=== PATIENT | female | born 1965 | race Two or more races ===

== ENCOUNTER 2020-04-17 13:50 | Outpatient (REF) | payer OTHER, SELFPAY | END 2020-04-17 13:51 | disposition home or self-care (01) | LOC: HO.LAB 13:50 | PROVIDERS: PCP Registered Nurse; Visit Provider Internal Medicine | DX: Z20.828 Contact with and (suspected) exposure to other viral communicable diseases (principal) | CPT/HCPCS: C9803; U0003 ==

== ENCOUNTER 2020-05-23 14:22 | Outpatient (REF) | payer OTHER, SELFPAY ==
--- NOTE | 2020-05-23 14:30 | XR_ITS ---
EXAMINATION: XR BILATERAL WRISTS CLINICAL INFORMATION: Pain COMPARISON: None TECHNIQUE: PA, oblique, lateral and scaphoid views of each wrist FINDINGS: No acute fracture or dislocation. There are degenerative changes of the bilateral first CMC joints characterized by marginal osteophytosis, subchondral sclerosis and joint space narrowing, worse on the right where there is associated heterotopic ossification along the radial aspect of the trapezium. Radiocarpal joints are preserved. Scapholunate intervals within normal limits. No erosive changes. Soft tissues unremarkable. XR/XR wrist LT min 3V IMPRESSION: No acute fracture or dislocation. 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 No evidence of inflammatory arthropathy.
--- NOTE | 2020-05-23 14:30 | XR_ITS ---
EXAMINATION: XR BILATERAL WRISTS CLINICAL INFORMATION: Pain COMPARISON: None TECHNIQUE: PA, oblique, lateral and scaphoid views of each wrist FINDINGS: No acute fracture or dislocation. There are degenerative changes of the bilateral first CMC joints characterized by marginal osteophytosis, subchondral sclerosis and joint space narrowing, worse on the right where there is associated heterotopic ossification along the radial aspect of the trapezium. Radiocarpal joints are preserved. Scapholunate intervals within normal limits. No erosive changes. Soft tissues unremarkable. XR/XR wrist RT min 3V IMPRESSION: No acute fracture or dislocation. 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 No evidence of inflammatory arthropathy.
== END 2020-05-23 14:23 | disposition home or self-care (01) ==
LOC: HO.XRAY 14:22
PROVIDERS: PCP Registered Nurse; Visit Provider Registered Nurse
DX: M25.531 Pain in right wrist (principal); M25.532 Pain in left wrist
CPT/HCPCS: 73110

== ENCOUNTER → 2020-07-12 09:33 | Outpatient (BNVA) | payer OTHER, SELFPAY | PROVIDERS: Visit Provider Orthopaedic Surgery | DX: M65.4 Radial styloid tenosynovitis [de Quervain] (principal) | CPT/HCPCS: 20600; 99202; J1100 ==

== ENCOUNTER 2020-08-13 14:35 | Outpatient (REF) | payer OTHER, SELFPAY | END 2020-08-13 14:36 | disposition home or self-care (01) | LOC: HO.HOSX 14:35 | PROVIDERS: Visit Provider Orthopaedic Surgery | DX: M65.4 Radial styloid tenosynovitis [de Quervain] (principal); M25.531 Pain in right wrist | CPT/HCPCS: 99212 ==

== ENCOUNTER 2021-04-26 10:42 | Outpatient (REF) | payer OTHER, SELFPAY ==
[2021-04-26 11:22] LABS: COVID-19 Test Negative (Negative)
== END 2021-04-26 10:43 | disposition home or self-care (01) ==
LOC: HO.LAB 10:42
PROVIDERS: Visit Provider Internal Medicine
DX: Z20.822 Contact with and (suspected) exposure to COVID-19 (principal)
CPT/HCPCS: 36415; 87635; C9803

== ENCOUNTER 2022-01-31 10:38 | Outpatient (REF) | payer OTHER, SELFPAY ==
--- NOTE | ~2022-01-31 | US_ITS ---
EXAMINATION: US VENOUS ULTRASOUND WITH DOPPLER LOWER EXTREMITY, RIGHT CLINICAL INFORMATION: Right leg pain. COMPARISON: None TECHNIQUE: Ultrasound of the deep veins is performed from the hip to the calf with compression sonography and color and pulse Doppler assessment. Spectral analysis with color-flow imaging is performed. FINDINGS: The common femoral vein is compressible and exhibits a normal phasic waveform; this suggests that the iliac veins are widely patent above. Within the proximal thigh, the visualized profunda femoris vein is normal. The examined greater saphenous vein and saphenofemoral junction are normal. Superficial femoral vein is patent in the proximal, mid and distal thigh. Popliteal vein is normal to the level of the trifurcation. On compression beckham scale and color Doppler images, the visualized deep calf veins are grossly patent. No evidence of Garcia's cyst. Small amount of fluid is detected within the posterior knee joint. US/US venous duplex LE RT IMPRESSION: * No evidence of deep vein thrombosis in the right lower extremity. * Small knee joint effusion.
== END 2022-01-31 10:39 | disposition home or self-care (01) ==
LOC: HO.US 10:38
PROVIDERS: PCP Nurse Practitioner Primary Care; Visit Provider Emergency Medicine
DX: R60.0 Localized edema (principal)
CPT/HCPCS: 93971

== ENCOUNTER 2022-02-21 | Outpatient (REF) | payer OTHER, SELFPAY | END 2022-02-21 00:01 | LOC: HO.HOSX | PROVIDERS: Visit Provider Physician Assistant | DX: M25.561 Pain in right knee (principal) | CPT/HCPCS: 73560; 73565 ==

== ENCOUNTER 2022-03-14 10:52 | Outpatient (REF) | payer OTHER, SELFPAY ==
--- NOTE | ~2022-03-14 | MM_ITS ---
EXAMINATION: MM SCREENING DIGITAL BREAST TOMOSYNTHESIS, BILATERAL CLINICAL INFORMATION: Screening. Asymptomatic. The lifetime risk of breast cancer based on the Tyrer-Cuzick Model is 5%. COMPARISON: Mammography: 06/06/2011 and 09/25/2009. TECHNIQUE: Digital breast tomosynthesis is performed in both the craniocaudal and mediolateral oblique views along with computer-aided detection (CAD). Synthesized 2D images are generated from the tomosynthesis. FINDINGS: There are scattered areas of fibroglandular density (ACR BI-RADS breast composition Category b). No suspicious right breast findings. Within the central and what appears to be medial aspect of the left breast, 6 cm from the nipple, there is some region of architectural distortion for which spot compression views are recommended. MM/MM tomosynthesis screening BI IMPRESSION: Left breast density for further evaluation with spot compression views and possible ultrasound if lesion is persistent. ASSESSMENT: BI-RADS 0: Incomplete - Need additional imaging evaluation. RECOMMENDATION: 1. Additional views of the left breast. 2. Targeted ultrasound if warranted after review of the additional views. 3. Radiology department staff will contact the patient for additional imaging. This patient's information was entered into a reminder system with a target due date for their next mammogram.
== END 2022-03-14 10:53 | disposition home or self-care (01) ==
LOC: HO.MAMMO 10:52
PROVIDERS: PCP Nurse Practitioner Primary Care; Visit Provider Nurse Practitioner Primary Care
DX: Z12.31 Encounter for screening mammogram for malignant neoplasm of breast (principal)
CPT/HCPCS: 77063; 77067

== ENCOUNTER 2022-04-04 14:50 | Outpatient (REF) | payer OTHER, SELFPAY ==
--- NOTE | ~2022-04-04 | MM_ITS ---
EXAMINATION: MM DIAGNOSTIC DIGITAL BREAST TOMOSYNTHESIS, LEFT US TARGETED BREAST, LEFT CLINICAL INFORMATION: Left breast density. COMPARISON: Mammography: 03/14/2022 and studies dating back to 09/25/2009. TECHNIQUE: Digital breast tomosynthesis is performed. 2D images are generated from the tomosynthesis. The following views are obtained: Spot compression mediolateral oblique and craniocaudal views of the left breast. Targeted left breast ultrasound. FINDINGS: The breasts are heterogeneously dense, which may obscure small masses (ACR BI-RADS breast composition Category c). The questioned density about the superior medial aspect of the left breast appears to compress out to a large degree with density likely being related to superimposition of fibroglandular tissue. ULTRASOUND: Targeted ultrasound evaluation did not demonstrate any abnormal cystic or solid masses. No region of abnormal distal sound shadowing was appreciated. Results are discussed with the patient at time of visit. MM/MM tomosynthesis added views L IMPRESSION: No suspicious left breast ultrasound finding. Effacement of majority of density left breast on spot compression views. Recommend 6 month follow up left breast mammogram to ensure stability. ASSESSMENT: BI-RADS 3: Probably Benign. RECOMMENDATION: Diagnostic mammography in 6 months. This patient's information was entered into a reminder system with a target due date for their next mammogram.
== END 2022-04-04 14:51 | disposition home or self-care (01) ==
LOC: HO.MAMMO 14:50
PROVIDERS: PCP Nurse Practitioner Primary Care; Visit Provider Nurse Practitioner Primary Care
DX: R92.2 Inconclusive mammogram (principal)
CPT/HCPCS: 76642; 77061; 77065

== ENCOUNTER 2023-02-02 09:24 | Outpatient (REF) | payer MEDICAID, SELFPAY ==
[2023-02-02 12:00] LABS: Alanine Aminotransferase 14 U/L (0-31); Albumin Level 4.2 g/dL (3.5-5.0); Alkaline Phosphatase 77 U/L (39-117); Anion Gap 8 (12-20); Aspartate Amino Transferase 17 U/L (5-31); Bilirubin Total 0.4 mg/dL (0.0-1.0); Blood Urea Nitrogen 20 mg/dL (9-16); Calcium 9.5 mg/dL (8.4-10.2); Carbon Dioxide 30 mmol/L (22-29); Chloride 108 mmol/L (96-108); Cholesterol 229 mg/dL (<200); Estimated Glomerular Filt Rate > 60; Glucose Random 94 mg/dL (60-115); HDL Cholesterol 45 mg/dL (>40); LDL Cholesterol Calculated 160 mg/dL (<100); Lipase 26 U/L (8-78); Potassium 3.6 mmol/L (3.3-5.1); Sodium 142 mmol/L (135-145); Total Protein 7.1 g/dL (6.5-8.0); Triglycerides 122 mg/dL (<150)
[2023-02-02 14:56] LABS: Amylase 43 U/L (28-100)
[2023-02-06 13:28] LABS: VITAMIN D (1,25 OH) D3 53 pg/mL; Vit D (1,25-Dihydroxy) Total 53 pg/mL (18-72); Vitamin D (1,25 OH) D2 <8 pg/mL
== END 2023-02-02 09:25 | disposition home or self-care (01) ==
LOC: HO.HHCL 09:24
PROVIDERS: Visit Provider Nurse Practitioner Primary Care
DX: Z00.00 Encounter for general adult medical examination without abnormal findings (principal); M81.0 Age-related osteoporosis without current pathological fracture; R10.11 Right upper quadrant pain
CPT/HCPCS: 36415; 80053; 80061; 82150; 82652; 83690

== ENCOUNTER 2023-02-05 12:47 | Outpatient (REF) | payer MEDICAID, SELFPAY ==
--- NOTE | ~2023-02-05 | MM_ITS ---
EXAMINATION: MM DIAGNOSTIC DIGITAL BREAST TOMOSYNTHESIS, BILATERAL CLINICAL INFORMATION: Follow-up possible left focal asymmetry central left MLO view and far medial, middle one third on left CC view. No ultrasound correlate seen on previous ultrasound dated 04/04/2022. COMPARISON: Mammography: 04/04/2022, 03/04/2022, 06/06/2011. TECHNIQUE: Digital breast tomosynthesis is performed in both the craniocaudal and mediolateral oblique views along with computer-aided detection (CAD). Synthesized 2D images are generated from the tomosynthesis. FINDINGS: There are scattered areas of fibroglandular density (ACR BI-RADS breast composition Category b). There are no suspicious masses, suspicious grouped calcifications, or areas of architectural distortion. The previously questioned foci of asymmetry/architectural distortion do not persist on today's exam. The parenchymal pattern is stable from prior exams. MM/MM tomosynthesis diagnostic BI IMPRESSION: No persistent findings suspicious for malignancy in either breast. Recommend returning to routine screening. ASSESSMENT: BI-RADS BI-RADS 2 - Benign Findings RECOMMENDATION: 1 year F/U Results were provided to the patient at time of visit by the technologist. This patient's information was entered into a reminder system with a target due date for their next mammogram.
== END 2023-02-05 12:48 | disposition home or self-care (01) ==
LOC: HO.MAMMO 12:47
PROVIDERS: Visit Provider Nurse Practitioner Primary Care
DX: R92.2 Inconclusive mammogram (principal)
CPT/HCPCS: 77062; 77066

== ENCOUNTER 2023-02-13 09:38 | Outpatient (REF) | payer MEDICAID, SELFPAY ==
[2023-02-15 21:33] LABS: TS Negative Control Passed; TS Panel A 0; TS Panel B 0; TS Positive Control Passed; TSpotTB Negative (Negative)
== END 2023-02-13 09:39 | disposition home or self-care (01) ==
LOC: HO.HHCL 09:38
PROVIDERS: Visit Provider Nurse Practitioner Primary Care
DX: Z11.1 Encounter for screening for respiratory tuberculosis (principal)
CPT/HCPCS: 36415; 86481

== ENCOUNTER 2023-02-13 10:04 | Outpatient (REF) | payer MEDICAID, SELFPAY | END 2023-02-13 10:05 | disposition home or self-care (01) | LOC: HO.MAMMO 10:04 | PROVIDERS: PCP Nurse Practitioner Primary Care; Visit Provider Nurse Practitioner Primary Care | DX: Z13.820 Encounter for screening for osteoporosis (principal); M81.0 Age-related osteoporosis without current pathological fracture; Z78.0 Asymptomatic menopausal state | CPT/HCPCS: 36415; 77080; 86481 ==

== ENCOUNTER 2023-03-30 18:28 | Outpatient (REF) | payer MEDICAID, SELFPAY | END 2023-03-30 18:29 | disposition home or self-care (01) | LOC: HO.HHCLNP 18:28 | PROVIDERS: Visit Provider Internal Medicine | DX: R39.9 Unspecified symptoms and signs involving the genitourinary system (principal) | CPT/HCPCS: 87086 ==

== ENCOUNTER 2023-07-03 09:16 | Outpatient (AMB) | payer MEDICAID, SELFPAY ==
--- NOTE | 2023-07-03 09:26 | MHC.OFFVIS ---
Intake Vital Signs 07/03/23 09:27 Height 5 ft 3 in Weight 147 lb 11.355 oz BMI 26.2 BP 130/80 Blood Pressure Location Lt brachial Position Sitting Pulse 81 Intake Visit Reasons: ROOM CLERK/Vivian Sims/Chest pain Intake Note: New patient dx chest pain c/o chest pain a few times a month mostly at night will wake her up Adoption Counselor Required: No Instructional Media Services Technician: Instructional Media Services Technician Present Accompanied by: Spouse Allergies Nubain Allergy (Unknown, Uncoded 02/21/22 10:42) nausea/ very sleepy fish Allergy (Uncoded 02/21/22 10:42) Unknown Medication List - Last Reconciled 07/03/23 by Kris Johns MD simvastatin 40 mg PO BEDTIME HPI HPI Comments History of Present Illness Details Thank you for referring Maria Luisa in cardiology consultation today for precordial chest discomfort she describes a burning discomfort. She says that she has been having some symptoms for the last many months. She says she has increased level of stress related to taking care of her mom who had a stroke. She also has lot of personal stress. She has been noting intermittent episodes of precordial chest burning discomfort which comes on suddenly and is very severe associated with sometimes radiation to her left arm. She has no associated shortness of breath, nausea, vomiting, diaphoresis. Symptoms then last for about 5-10 minutes and subside. She has not tried any clear medical therapy for it. She is very concerned about the symptoms due to strong family history of premature coronary artery disease. She is prior history of hyperlipidemia for which she is been started on simvastatin therapy about a month ago. No repeat labs since then. She denies any clear exertional symptoms. Most of these symptoms happen at rest. She says she has never had prior history of acid reflux disease. [facility] Medical History Trigger finger of all digits of right hand Carpal tunnel syndrome Fibromyalgia Hypercholesteremia Social History Current occupational status: employed Current occupation: homeless prevention/right handed Review of Systems Const Denies chills, Denies fatigue, Denies fever(s), Denies frequent falls, Denies weakness, Denies weight gain and Denies weight loss Eyes Denies loss of vision ENT Denies dizziness Card Denies chest pain, Denies leg edema, Denies lightheadedness, Denies palpitations, Denies dyspnea, Denies dyspnea on exertion, Denies orthopnea and Denies other (loss of consciousness) Resp Denies cough, Denies dyspnea, Denies dyspnea on exertion and Denies wheezing GI Denies hematochezia and Denies change in stool character Denies urinary frequency and Denies dysuria Musc Denies abnormal gait, Denies muscle weakness, Denies numbness, Denies radiating pain into limb and Denies tingling Skin/Breast Denies nail changes and Denies rash Neuro Denies abnormal gait, Denies dizziness, Denies frequent falls, Denies loss of vision, Denies memory loss, Denies numbness, Denies tingling and Denies weakness Psych Denies depression and Denies memory loss Endo Denies fatigue and Denies palpitations Parth/Lymph Reports easy bruising and Reports other (anemia) Aller/Immun Denies wheezing Physical Exam Vital Signs: Last Vital Signs Pulse 81 07/03/23 09:27 BP 130/80 07/03/23 09:27 BMI result Body Mass Index 26.2 Const General: cooperative, comfortable, no acute distress, alert, awake and Physically active Nutritional Appearance: average body habitus Orientation/consciousness: patient oriented x3 Limitations: no limitations HEENT Head: Yes normocephalic and Yes atraumatic Neck Neck: Yes trachea midline, Yes supple and Yes no JVD Resp Effort & Inspection: normal respiratory effort Auscultation: clear to auscultation bilaterally Cardio Jugular venous distension: no JVD Palpation: normal PMI Rate: regular rate Rhythm: regular rhythm Heart sounds: S1 normal heart sound present, S2 normal heart sound present, no click, no gallops, no murmurs and no rubs GI Auscultation: normal bowel sounds Skin General skin exam: no rashes or lesions noted Neuro General: patient oriented x3 and no focal motor deficits Extrem General: Yes no clubbing, cyanosis or edema Psych Appearance: grossly normal Office Procedures EKG Details: EKG shows normal sinus rhythm with poor R-wave progression most likely due to lead placement with normal EKG otherwise [id number]-[id number], Complete Assessment & Plan Assessment & Plan (1) Atypical chest pain: Code(s): R07.89 - Other chest pain Plan: Patient with history of hyperlipidemia which is quite significant and strong family history for premature coronary artery disease presents with atypical chest pain. Likelihood of myocardial ischemia is low although given her symptoms and family history will pursue with a treadmill stress test. No need for imaging at this point time. Advise to pursue this stress test in near future. Will also obtain echocardiogram to assess for cardiac structure and function. These tests will be scheduled in near future. If these are within normal limits I would suggest her to undergo GI workup as her symptoms could represent acid reflux disease and esophageal spasm. This was discussed with her. She understands and agrees. (2) Hypercholesteremia: Code(s): E78.00 - Pure hypercholesterolemia, unspecified Plan: Significant hyperlipidemia with family history. Discussed with her about further evaluation for possibility of presence of coronary atherosclerosis. Would suggest a coronary calcium score to assess for the same. This will help with guiding therapy in terms more aggressive management of her lipids. This was discussed with her. She is agreeable. She will pursue this once the testing for structural heart disease is within normal limits. Will follow up in the clinic in 6 weeks time, sooner p.r.n.. Thank you for allowing me to partake in the care Orders: Orders CA stress test Today R07.89 - Other chest pain CT Coronary Calcium Score 4 Weeks E78.00 - Pure hypercholesterolemia, unspecified CA echo transthoracic complete Today R07.89 - Other chest pain Coding Level of Care Code New Pt Level 4 (60264) Diagnoses Atypical chest pain R07.89 Hypercholesteremia E78.00 CPT Codes EKG - CPT: 01849-[id number], Complete ([id number])
[2023-07-03 09:27] VITALS: BP 130/80; PULSE 81; BMI 26.2
== END 2023-07-03 09:55 | disposition home or self-care (01) ==
PROVIDERS: PCP Nurse Practitioner Primary Care; Referring Provider Nurse Practitioner Primary Care; Visit Provider Internal Medicine Cardiovascular Disease
DX: R07.89 Other chest pain (principal); E78.00 Pure hypercholesterolemia, unspecified
CPT/HCPCS: 93010; 99204

== ENCOUNTER → 2023-07-03 09:16 | Outpatient (BNVA) | payer MEDICAID, SELFPAY | PROVIDERS: PCP Nurse Practitioner Primary Care; Visit Provider Internal Medicine Cardiovascular Disease | DX: R07.89 Other chest pain (principal); E78.00 Pure hypercholesterolemia, unspecified | CPT/HCPCS: 93005; 99202 ==

== ENCOUNTER 2024-09-28 10:38 | Outpatient (REF) | payer MEDICAID, SELFPAY ==
--- OUTSIDE RECORDS SUMMARY | 2024-09-28 11:41 | XMS_ITS | Encounter Summary ---
Author Organization [employer] Address [address] [place] [address] [address] [place] [address] Care Team Providers Care Teacher Lip Reading Name Role Phone Vivian Sims Primary Care Provider [phone] Reason for Referral * Imaging (Routine) - Closed Specialty Diagnoses / Procedures Referred By Sahra ramirez Referred To Contact Radiology Diagnoses Screening mammogram for breast cancer Procedures BI Mammogram Screening Bilateral Vivian Sims ANP [address] [place] [id number] Phone: tel: fax: [address] Phone: tel: fax: Referral ID Status Reason Start Date Expiration Date Visits Re quested Visits Authorized [id number] Closed 09/27/2024 09/27/2025 1 1 Encounter Details Date Type Department Care Team (Late st Contact Info) Description 09/27/2024 1:30 PM EDT Office Visit [facility] [address] [place] [address] [phone] Vivian Sims ANP [address], [place] [phone] Screening mammogram for breast cancer (Primary Dx); Screening for malignant neoplasm of colon; Mixed hyperlipidemia; Fibromyalgia; Healthcare maintenance; Stress Social History Tobacco Use Types Packs/Day Years Used Date Smoking Tobacco: Never Passive Smoke Exposure: Never Smokeless Tobacco: Never Alcohol Use Standard Drinks/Week Comments Not Currently 0 (1 standard drink = 0.6 oz pur e alcohol) Depression Answer Date Recorded Patient Health Questionnaire-9 Score 0 09/27/2024 Patient Health Questionnaire-9 Score 0 09/27/2024 Last PHQ-9: Questionnaire Data Not on file 0 09/27/2024 Housing Stability Answer Date Recorded What is your housing situation today? I have chidi holt 09/27/[address] you li ve. Do you have problems with any of the following? None of the above 09/27/2024 Food Insecurity Answer Date Recorded Within the past 12 months, y ou worried that your food would run out before you got money to buy more: Never True 09/27/2024 Within the past 12 months,th e food you bought just didn't last and you didn't have enough money to get more: Never True Transportation Answer Date Recorded In the past 12 months, has l ack of transportation kept you from medical appts, meetings, work or from getting things needed for daily living? No 09/27/2024 Utilities Answer Date Recorded In the past 12 months, has t he electric, gas, oil or water company threatened to shut off services in your home? No 09/27/2024 Depression Answer Date Recorded Patient Health Questionnaire-2 Score 0 09/27/2024 Internet Access Answer Date Recorded Internet Access Q1 Yes 09/27/2024 Internet Access Q2 Not on file 09/27/2024 Comments Unknown Sex and Gender Information Value Date Recorded Sex Assigned at Female 03/17/2022 10:36 AM EDT Legal Sex Female 10:36 AM EDT Gender Identity Female 03/17/2022 10:36 AM EDT Sexual Orientation Choose not to disclose 2021 10:36 AM EDT documented as of this encounter Last Filed Vital Signs Vital Sign Reading Time Taken Comments Blood Pressure 152/83 09/27/2024 1:22 PM EDT Pulse 86 09/27/2024 1:22 PM EDT Temperature - - Respiratory Rate 16 09/27/2024 1:22 PM EDT Oxygen Saturation - - Inhaled Oxygen Concentration - - Weight 64.4 kg (142 lb) 09/27/2024 1:22 PM EDT Height 160 cm (5' 3 ) 09/27/2024 1:22 PM EDT Body Mass Index 25.15 09/27/2024 1:22 PM EDT documented in this encounter Functional Status * Over the past 2 weeks, how often have you been bothered by any of the following problems? Question Answer Date of Assessment Author Little interest or pleasure in doing things Not at all 09/27/2024 1:52 PM EDT Kameron Romero MA Feeling down, depressed, or hopeless Not at all 09/27/2024 1:52 PM EDT Kameron Romero MA Patient Health Questionnaire -2 Score 0 09/27/2024 1:52 PM EDT Kameron Romero MA * Trouble falling or staying asleep, or sleeping too much Answer Date of Assessment Author Not at all 09/27/2024 1:52 PM EDT Kameron Romero MA * Feeling tired or having little energy Answer Date of Assessment Author Not at all 09/27/2024 1:52 PM EDT Kameron Romero MA * Poor appetite or overeating Answer Date of Assessment Author Not at all 09/27/2024 1:52 PM EDT Kameron Romero MA * Feeling bad about yourself - or that you are a failure or have let yourself or your family down Answer Date of Assessment Author Not at all 09/27/2024 1:52 PM EDT Kameron Romero MA * Trouble concentrating on things, such as reading the newspaper or watching television Answer Date of Assessment Author Not at all 09/27/2024 1:52 PM EDT Kameron Romero MA * Moving or speaking so slowly that other people could have noticed? Or the opposite - being so fidgety or restless that you have been moving around a lot more than usual. Answer Date of Assessment Author Not at all 09/27/2024 1:52 PM EDT Kameron Romero MA * Thoughts that you would be better off or hurting yourself in some way Answer Date of Assessment Author Not at all 09/27/2024 1:52 PM EDT Kameron Romero MA * Patient Health Questionnaire-9 Score Answer Date of Assessment Author 0 09/27/2024 1:52 PM EDT Kameron Romero MA * Over the last 2 weeks, how often have you been bothered by any of the following problems? Question Answer Date of Assessment Author Feeling nervous, anxious, or on edge 0 09/27/2024 1:53 PM EDT Kameron Romero MA Not being able to stop or co ntrol worrying 0 09/27/2024 1:53 PM EDT Kameron Romero MA Worrying too much about diff erent things 0 09/27/2024 1:53 PM EDT Kameron Romero MA Trouble relaxing 0 09/27/2024 1:53 PM EDT Kameron Robison MA Being so restless that it is hard to sit still 0 09/27/2024 1:53 PM EDT Kameron Romero MA Becoming easily annoyed or irritable 0 09/27/2024 1:53 PM EDT Kameron Romero MA Feeling afraid as if somethi ng awful might happen 0 09/27/2024 1:53 PM EDT Kameron Romero MA JULIUS-7 Total Score 0 09/27/2024 1:53 PM EDT Kameron Romero MA documented as of this encounter Plan of Treatment Upcoming Encounters Date Type Department Care Team (Late st Contact Info) Description 10/11/2024 9:00 AM EDT Procedure Visit [facility] [address] [place] [phone] Anita Mcknight, ROMAIN [address] [place] [address] 12/20/2024 9:45 AM EDT Office Visit [facility] [address] [place] [address] Bethany Dotson, OD [address] [place] [address] 12/29/2024 11:00 AM EDT Office Visit [facility] [address] [place] [phone] Vivian Sims, ANP [address] [place] [address] Scheduled Orders Name Type Priority Associated Diagnoses Orde r Schedule BI Mammogram Screening Bilateral Imaging Routine Screening mammogram for breast cancer Expected: 09/27/2024, Expires: 09/28/2025 Lipid Panel, Standard Lab Routine Mixed hyperlipidemia Expected: 09/27/2024 (Approximate), Expires: 09/27/2025 Comprehensive Metabolic Panel Lab Routine Healthcare maintenance Expected: 09/27/2024 (Approximate), Expires: 09/27/2025 CBC auto differential Lab Routine Healthcare maintenance Expected: 09/27/2024 (Approximate), Expires: 09/27/2025 Vitamin D, 25-Hydroxy, Total, Immunoassay Lab Routine Healthcare maintenance Expected: 09/27/2024 (Approximate), Expires: 09/27/2025 documented as of this encounter Visit Diagnoses Diagnosis Screening mammogram for breast cancer- Primary Screening for malignant neoplasm of colon Mixed hyperlipidemia Fibromyalgia Unspecified myalgia and myositis Healthcare maintenance Stress Other psychological or physical stress, not elsewhere classified documented in this encounter Additional Health Concerns Assessment Noted Time PHQ-9 Depression Total Score: 0 09/28/19 25 1:52 PM EDT documented as of this encounter Care Teams Teacher Lip Reading Relationship Specialty Start Date End Date Vivian Sims ANP [address] [place] [id number] PCP - General Family Medicine 01/04/21 documented as of this encounter
--- OUTSIDE RECORDS SUMMARY | 2024-09-28 11:41 | XMS_ITS | Encounter Summary ---
Author Organization [employer] Address [address] [facility] [address] [place] [address] Care Team Providers Care Torch Straightener And Heater Name Role Phone Vivian Sims Primary Care Provider [phone] Reason for Visit * Reason Onset Date Comments Reschedule 06/23/2023 Encounter Details Date Type Department Care Team ([facility] st Contact Info) Description 06/23/2023 Telephone [facility] MED[facility]INE [address] [place], [place] [phone] Vivian Sims ANP [address] [place], [place] [phone] Reschedule Social History Tobacco Use Types Packs/Day Years Used Date Smoking Tobacco: Never Smokeless Tobacco: Never Alcohol Use Standard Drinks/Week Comments Not Currently 0 (1 standard drink = 0.6 oz pur e alcohol) Depression Answer Date Recorded Patient Health Questionnaire-9 Score 4 02/03/2023 Housing Stability Answer Date Recorded What is your housing situation today? I have chidi holt 03/04/[address] you li ve. Do you have problems with any of the following? None of the above 03/04/2023 Food Insecurity Answer Date Recorded Within the past 12 months, y ou worried that your food would run out before you got money to buy more: Never True 03/04/2023 Within the past 12 months,th e food you bought just didn't last and you didn't have enough money to get more: Never True Transportation Answer Date Recorded In the past 12 months, has l ack of transportation kept you from medical appts, meetings, work or from getting things needed for daily living? No 03/04/2023 Utilities Answer Date Recorded In the past 12 months, has t he electric, gas, oil or water company threatened to shut off services in your home? No 03/04/2023 Depression Answer Date Recorded Patient Health Questionnaire-2 Score 0 02/03/2023 Comments Unknown Sex and Gender Information Value Date Recorded Sex Assigned at Female 03/17/2022 10:36 AM EDT Legal Sex Female 10:36 AM EDT Gender Identity Female 03/17/2022 10:36 AM EDT Sexual Orientation Choose not to disclose 2021 10:36 AM EDT documented as of this encounter Miscellaneous Notes * Telephone Encounter - Ember Hartman - 06/23/2023 9:00 AM EST Tc from pt requesting r/s 06/23/2023 appt for the month of july pt stated her [facility]ts with [facility] on the end of june. documented in this encounter Plan of Treatment Upcoming Encounters Date Type Department Care Team (Late st Contact Info) Description 10/11/2024 9:00 AM EDT Procedure Visit [facility]INE [address] [place] [phone] Anita Mcknight CNM [address] [place] [address] 12/20/2024 9:45 AM EDT Office Visit [facility] OPTOMETRY [address] [place] [address] Bethany Dotson, OD [address] [place] [address] 12/29/2024 11:00 AM EDT Office Visit [facility] [address] [place] [address] Vivian Sims ANP [address] [place] [address] documented as of this encounter Visit Diagnoses Not on filedocumented in this encounter Additional Health Concerns Assessment Noted Time PHQ-9 Depression Total Score: 4 02/04/20 23 10:01 AM EDT documented as of this encounter Care Teams Torch Straightener And Heater Relationship Specialty Start Date End Date Vivian Sims ANP [address] [place] [address] PCP - General Family Medicine 01/04/21 documented as of this encounter
--- OUTSIDE RECORDS SUMMARY | 2024-09-28 11:41 | XMS_ITS | Encounter Summary ---
Author Organization [employer] Address [address] [facility] 7[address] [place] [address] Care Team Providers Care Assistant Program Manager Name Role Phone Vivian Sims MIKA Primary Care Provider [phone] Encounter Details Date Type Department Care Team (Latest Contact Info) Description 09/27/2024 Travel Social History Tobacco Use Types Packs/Day Years [...] is your housing situation today? I have chidisamuel holt 09/27/[address] you [...] AM EDT documented as of this encounter Functional Status * Over the [...] Description 10/11/2024 9:00 AM EDT Procedure Visit [facility]INE [address] [place] [address] Anita Mcknight CNM [address] [place] [address] 12/20/2024 9:45 AM EDT Office Visit [facility] OPTOMETRY [address] [place] [address] Bethany Dotson OD [address] [place] [address] 12/29/2024 11:00 AM EDT Office Visit [facility] MEDICINE [address] [place] [address] Vivian Sims ANP [address] [place] [address] documented as of this encounter Visit Diagnoses Not on filedocumented in this encounter Additional Health Concerns Assessment Noted Time PHQ-9 Depression Total Score: 0 09/28/19 25 1:52 PM EDT documented as of this encounter Care Teams Assistant Program Manager Relationship Specialty Start Date End Date Vivian Sims ANP [address] [place] [address] PCP - General Family Medicine 01/04/21 documented as of this encounter
--- OUTSIDE RECORDS SUMMARY | 2024-09-28 11:41 | XMS_ITS | Encounter Summary ---
Author Organization [employer] Address [address] [place] [address] 7 [place] [address] Care Team Providers Care Medical Claims Representative Name Role Phone Vivian Sims Primary Care Provider [phone] Reason for Referral * Consultation (Routine) - Closed Specialty Diagnoses / Procedures Referred By Sahra ramirez Referred To Contact Optometry Diagnoses Routine eye exam Vivian Sims ANP [address] [place] [address] Phone: tel: fax: Referral ID Status Reason Start Date Expiration Date V isits Requested Visits Authorized [id number] Closed Specialty Services Required 09/28/2024 09/28/2025 1 1 Reason for Visit * Reason Onset Date Comments Referral 09/28/2024 Encounter Details Date Type Department Care Team ([facility] st Contact Info) Description 09/28/2024 Telephone [facility] [address] [place] [phone] Vivian Sims ANP [address] [place] [address] Referral Social History Tobacco Use Types Packs/Day Years [...] as of this encounter Miscellaneous Notes * Addendum Note - Judith Nolen RN - 09/28/2024 11:00 AM EDTAddended by: JUDITH NOLEN on: 09/28/2024 11:00 AM Modules accepted: Orders * Telephone Encounter - Judith Nolen RN - 09/28/2024 10:59 AM EDT Referral placed. They will call her with an appt. * Telephone Encounter - Eri Mcpherson - 09/28/2024 10:46 AM EDT [facility]. Patient was advised of the wait list and was offered a list of alt Optometry offices but she rather wait and be seen at [facility]. documented in this encounter Plan of Treatment Upcoming Encounters Date Type Department Care Team (Late st Contact Info) Description 10/11/2024 9:00 AM EDT Procedure Visit [facility] [address] [place] [address] Anita Mcknight CNM [address] [place] [address] 12/20/2024 9:45 AM EDT Office Visit [facility] OPTOMETRY [address] [place] [address] Bethany Dotson, OD [address] [place] [address] 12/29/2024 11:00 AM EDT Office Visit [facility] MED[facility] [address] [place] [address] Vivian Sims ANP [address] [place] [address] Scheduled Referrals Name Type Priority Associated Diagnoses Orde r Schedule Referral to Optometry Outpatient Referral Routine Routine eye exam Expected: 09/28/2024 (Approximate), Expires: 09/28/2025 documented as of this encounter Visit Diagnoses Diagnosis Routine eye exam Examination of eyes and vision documented in this encounter Additional Health Concerns Assessment Noted Time PHQ-9 Depression Total Score: 0 09/28/19 25 1:52 PM EDT documented as of this encounter Care Teams Medical Claims Representative Relationship Specialty Start Date End Date Vivian Sims ANP [address] [place] [address] PCP - General Family Medicine 01/04/21 documented as of this encounter
--- OUTSIDE RECORDS SUMMARY | 2024-09-28 11:41 | XMS_ITS | Encounter Summary ---
Author Organization [employer] Address [address] [facility] [address] [place] [address] Care Team Providers Care Black Top Spreader Machine Operator Name Role Phone Vivian Sims Primary Care Provider [phone] Reason for Visit * Reason Onset Date Comments chart prep 09/26/2024 Encounter Details Date Type Department Care Team ([facility] Contact Info) Description 09/26/[address] [facility] MEDICINE [address] [place], [place] [phone] Vivian Sims ANP [address] [place], [place] [phone] chart prep Social History Tobacco Use Types Packs/Day Years [...] encounter Miscellaneous Notes * Telephone Encounter - Sylvain Zaldivar MA - 09/26/2024 12:14 PM EDT Chart Prep Labs: not applicable Images: not applicable Referrals: not applicable Vaccines due: PCV20, Tdap, and RSV Screenings: colonoscopy, mammogram, and pap smear Overdue care gaps: SBIRT, SDOH, PHQ-9, JULIUS-7, Oral health screening, Disability screen, and Tobacco documented in this encounter Plan of Treatment Upcoming Encounters Date Type Department Care Team (Late st Contact Info) Description 10/11/2024 9:00 AM EDT Procedure Visit [facility] [address] [place] [address] Anita Mcknight CNM [address] [place] [address] 12/20/2024 9:45 AM EDT Office Visit [facility] OPTOMETRY [address] [place] [address] Bethany Doston, OD [address] [place] [address] 12/29/2024 11:00 AM EDT Office Visit [facility]INE [address] [place] [address] Vivian Sims ANP [address] [place] [address] documented as of this encounter Visit Diagnoses Not on filedocumented in this encounter Additional Health Concerns Assessment Noted Time PHQ-9 Depression Total Score: 4 02/04/20 23 10:01 AM EDT documented as of this encounter Care Teams Black Top Spreader Machine Operator Relationship Specialty Start Date End Date Vivian Sims ANP [address] [place] [address] PCP - General Family Medicine 01/04/21 documented as of this encounter
--- OUTSIDE RECORDS SUMMARY | 2024-09-28 11:42 | XMS_ITS | Encounter Summary ---
Author Organization [employer] Address [address] [place] [address] [address] [place] [address] Care Team Providers Care Children'S Service Supervisor Name Role Phone Vivian Sims Primary Care Provider [phone] Encounter Details Date Type Department Care Team (Late st Contact Info) Description 11/06/2022 Abstract [facility] MEDICINE [address] [place] [phone] Vivian Sims ANP [address] [place] [address] Social History Tobacco Use Types Packs/Day Years Used Date Smoking Tobacco: Never Assessed Comments Unknown Sex and Gender Information Value Date Recorded Sex Assigned at Female 03/17/2022 10:36 AM EDT Legal Sex Female 10:36 AM EDT Gender Identity Female 03/17/2022 10:36 AM EDT Sexual Orientation Choose not to disclose 2021 10:36 AM EDT documented as of this encounter Plan of Treatment Upcoming Encounters Date Type Department Care Team (Late st Contact Info) Description 10/11/2024 9:00 AM EDT Procedure Visit [facility] MED[facility]INE [address] [place] [phone] Anita Mcknight CNM [address] [place] [address] 12/20/2024 9:45 AM EDT Office Visit [facility] OPTOMETRY [address] [place] [address] Bethany Dotson, OD [address] [place] [address] 12/29/2024 11:00 AM EDT Office Visit [facility] MEDICINE [address] [place] [address] Vivian Sims ANP [address] [place] [address] documented as of this encounter Visit Diagnoses Not on filedocumented in this encounter Care Teams Children'S Service Supervisor Relationship Specialty Start Date End Date Vivian Sims ANP [address] [place] [address] PCP - General Family Medicine 01/04/21 documented as of this encounter
--- OUTSIDE RECORDS SUMMARY | 2024-09-28 11:42 | XMS_ITS | Clinical Summary ---
Author Organization [employer] Address [address] [facility] 7 [place] [address] Care Team Providers Care Manager Paper Name Role Phone James Marcano MIKA Primary Care Provider [phone] Allergies Active Allergy Reactions Criticality Noted Date Comments Fish Allergy 03/30/2023 Medications * This document contains information received from the source organization and may not represent a complete record from that organization. albuterol 108 (90 Base) MCG/ACT inhalerIndications :Mild intermittent asthma in adult without complication Inhale 2 puffs every 6 (six) hours if needed for wheezing. 18 g 2 01/30/20 23 Active Calcium Carbonate-Vitamin D (Oyster Shell Calcium/D) 500-5 MG-MCG tablet Take 1 tablet by mouth. 07/13/19 08 Active simvastatin (Zocor) 40 MG tabletIndications: Mixed hyperlipidemia Take 1 tablet (40 mg) by mouth at bedtime. 90 tablet 3 05/26/19 24 Active EPINEPHrine (Epipen) 0.3 MG/0.3ML injection syringeIndications :Food allergy Inject 0.3 mL (0.3 mg) as directed 1 (one) time if needed for anaphylaxis for up to 1 dose. Inject into upper leg. Call 911 after use. 2 each 1 08/28/19 24 Active diphenhydrAMINE (BENADryl) 25 MG capsuleIndications :Food allergy Take 1-2 tablet(s) as needed every 6 hours for allergic reaction 30 capsule 08/28/19 24 Active Active Problems Problem Noted Date Diagnosed Date Osteopenia 08/28/2023 UTI symptoms 03/30/2023 Assessment & Plan (03/30/2023 10:58 AM EST): Drink plenty of water, do not hold urine Kidney stone 03/30/2023 Assessment & Plan (03/30/2023 10:59 AM EST): Possible kidney stone, if symptoms persist or worse I advise to go to ED Osteoporosis without current pathological fractu re 01/29/2023 Fibromyalgia 01/29/2023 Asthma in adult without complication 01/29/2023 Adjustment disorder with anxious mood 01/29/2023 Assessment & Plan (02/13/2023 2:08 PM EDT): Patient with Adjustment Disorder symptoms and family stress. Reason for follow- up BE is to assess symptoms and provide referral status. Transitioning to a new routine after resigning to her job, raising her grandchildren and having difficult relationship with her are leading to an increase of symptoms. No SI/HI or self-harm risk. Referral for OP services placed on 02/03 to [facility]. Maria Luisa received a call from [facility] for the intake process. However, patient declined services thinking that [facility] clinician was her long-term therapist. Clinician explained the difference and recommended to call agency back if pt would like to receive long-term services. Maria Luisa agreed with the plan; phone number provided. At this time Maria Luisa Valladares meets criteria for Visit Diagnoses: Problem List Items Addressed This Visit Other Adjustment disorder with anxious mood Family problems Patient ready to address current needs Yes Strengths include determination to end unhealthy relationships. PLAN: 1. Follow up with [facility]: Not recommended for follow-up 2. Patient goal is to gradually adjust to new routine and be able to manage stress 3. Behavioral Recommendations a. Set-up boundaries in interpersonal relationships b. Prioritize self-care and practice mindfulness techniques frequently. c. Call A back to start intake process Assessment & Plan (02/03/2023 11:51 AM EDT): Patient with ymptoms of sleep disturbance, fatigued, poor appetite, nervousness, over-worrying, trouble relaxing and restlessness. Symptoms occur nearly everyday and have been present since patient adopted her grandchildren and resigned from her job to take care of her mom in November 2022. Symptoms indicate a moderate impact on social and occupational functioning. Symptoms presented in the context of transitioning to a new routine, relationship difficulties and raising her grandchildren. Patient will benefit from receiving OP individual therapy and adding coping mechanisms into daily routine. At this time Maria Luisa Valladares meets criteria for Visit Diagnoses: Problem List Items Addressed This Visit Other Adjustment disorder with anxious mood Other Visit Diagnoses Anxiety - Primary Relevant Orders Referral to Behavioral Health Patient ready to address current needs Yes Strengths include determination to end unhealthy relationship with her . PLAN: 1. Follow up with [facility]: Not recommended for follow-up 2. Patient goal is to adjust to new routine and be able to manage stress. 3. Behavioral Recommendations a. Referral for OP individual therapy b. Set-up boundaries in interpersonal relationships c. Incorporate mindfulness mechanisms and self care into daily routine Family problems 01/29/2023 Assessment & Plan (02/13/2023 2:08 PM EDT): Patient with Adjustment Disorder symptoms and family stress. Reason for follow- up BE is to assess symptoms and provide referral status. Transitioning to a new routine after resigning to her job, raising her grandchildren and having difficult relationship with her are leading to an increase of symptoms. No SI/HI or self-harm risk. Referral for OP services placed on 02/03 to [facility]. Maria Luisa received a call from [facility] for the intake process. However, patient declined services thinking that [facility] clinician was her long-term therapist. Clinician explained the difference and recommended to call agency back if pt would like to receive long-term services. Maria Luisa agreed with the plan; phone number provided. At this time Maria Luisa Valladares meets criteria for Visit Diagnoses: Problem List Items Addressed This Visit Other Adjustment disorder with anxious mood Family problems Patient ready to address current needs Yes Strengths include determination to end unhealthy relationships. PLAN: 1. Follow up with [facility]: Not recommended for follow-up 2. Patient goal is to gradually adjust to new routine and be able to manage stress 3. Behavioral Recommendations a. Set-up boundaries in interpersonal relationships b. Prioritize self-care and practice mindfulness techniques frequently. c. Call [facility] back to start intake process BRCA negative 08/18/2017 Family history of multiple myeloma 11/14/2013 Family history of prostate carcinoma 11/14/2013 Hyperlipidemia 09/06/2012 Encounters * This document contains information received from the source organization and may not represent a complete record from that organization. Date Type Department Care Team Description 09/28/[address] [address] James Marcano ANP Referral 09/27/2024 1:30 PM EDT Office Visit [address] [address] James Marcano ANP Screening mammogram for breast cancer (Primary Dx); Screening for malignant neoplasm of colon; Mixed hyperlipidemia; Fibromyalgia; Healthcare maintenance; Stress 09/27/2024 Travel 09/26/[address] [address] James Marcano ANP chart prep 09/20/2024 Patient Outreach [facility] [address] [place] [address] James Marcano ANP Pre-visit Planning (SDOH unable to reach [facility]) 08/24/2024 Patient Outreach [address] [address] James Marcano ANP Care Coordination (CM/CHW outreach) 08/23/2024 Patient Outreach [address] [address] James Marcano ANP 08/18/2024 Patient Outreach [address] [address] James Marcano ANP Care Coordination (CM/CHW outreach) 08/11/2024 Patient Outreach [address] [address] James Marcano ANP Care Coordination (CM/[facility]W outreach) 08/05/2024 Patient Outreach [address] [address] James Marcano ANP Care Coordination (CM/[facility] outreach) 08/05/2024 Patient Outreach [address] [address] James Marcano ANP Care Coordination ([facility] Chart Review) 08/05/2024 Patient Outreach [address] [address] James Marcano ANP Care Coordination ([facility]- chart review) 08/05/2024 Patient Outreach [facility] [address] [place] [address] James Marcano ANP 07/29/2024 Population Health Risk Score [facility] ([facility]) Department [address] [place] [phone] Provider, Population Health Generic 07/22/2024 Telephone [facility] [address] [place] [address] James Marcano ANP Nurse Triage from Last 3 Months Immunizations Immunization Administration Dates Next Due Hep B, adult 05/13/2021,04/03/2020,02/02/2020 INFLUENZA INJECTABLE QUADRIV ALANT CCIIV4 MDCK Multi-dose vial 04/01/2017 Influenza injectable quadriv alent preservative free 05/26/2023,05/13/2021,04/03/2020 Influenza, IIV3, injectable 04/18/2013 Influenza, injectable, quadr ivalent, preservative free, pediatric 04/18/2013 Influenza, seasonal, injecta ble, preservative free 03/28/2016,06/04/2015 MMR 02/02/2020 Pneumococcal Conjugate PCV 20 09/27/2024 Pneumococcal Polysaccharide PPSV23 11/14/2013 Tdap 09/27/2024,11/14/2013 Family History Medical History Relation Name Comments Stroke Mother Heart disease Other Premature CHD Other Relation Name Status Comments Mother Other Social History Tobacco Use Types Packs/Day Years Used Date Smoking Tobacco: Never Passive Smoke Exposure: Never Smokeless Tobacco: Never Tobacco Cessation:Counseling Given: Not Answered Alcohol Use Standard Drinks/Week Comments Not Currently [...] not to disclose 2021 10:36 AM EDT Last Filed Vital Signs Vital Sign Reading Time Taken Comments Blood Pressure 152/83 09/27/2024 1:22 PM EDT Pulse 86 09/27/2024 1:22 PM EDT Temperature 36.7 ??C (98 ??F) 08/28/2023 9:30 AM EDT Respiratory Rate 16 09/27/2024 1:22 PM EDT Oxygen Saturation 99% 08/28/2023 9:30 AM EDT Inhaled Oxygen Concentration - - Weight 64.4 kg (142 lb) 09/27/2024 1:22 PM EDT Height 160 cm (5' 3 ) 09/27/2024 1:22 PM EDT Body Mass Index 25.15 09/27/2024 1:22 PM EDT Plan of Treatment Upcoming Encounters Date Type Department Care Team (Late st Contact Info) Description 10/11/2024 9:00 AM EDT Procedure Visit [facility] [address] [place], [place] [phone] Anita Mcknight CNM [address] [place] [address] 12/20/2024 9:45 AM EDT Office Visit [facility] [address] [place] [address] Bethany Dotson, OD [address] [place] [address] 12/29/2024 11:00 AM EDT Office Visit [facility] [address] [place] [address] James Marcano, ANP [address] [place] [address] Health Maintenance Due Date Last Done Comments CT Colonography 1965 Colonoscopy 1965 Colorectal Cancer Screening 1965 FIT DNA/Cologuard 1965 FIT 1965 FOBT 1965 HIV Screening 1965 Sigmoidoscopy 1965 Zoster Vaccines (1 of 2) 2014 HPV/Cotest 07/14/2020 Cervical Cancer Screening 07/13/2023 Pap Smear 07/13/2023 07/13/2020 COVID-19 Vaccine (3 - season) 2024 10/10/2020, 09/08/2020 Influenza Vaccine (#1) 2024 , 05/13/2021, 04/03/2020, Additional history exists Mammogram 02/06/2024 02/05/2023, 01/17, 04/04/2022, Additional history exists RSV Patients and Patients Aged 60 years or older (1 - Risk 60-74 years 1-dose series) 2024 Alcohol/Substance Use Screening 09/27/2025 09/27/2024 Depression Screening 09/27/2025 09/27/2024, 09/28/19 SDOH Screening 09/27/2025 09/27/2024 Tobacco Screening 09/27/2025 09/27/2024 DTaP/Tdap/Td Vaccines (3 - Td or Tdap) 09/27/2034 09/27/2024, 11/14/2013 Hepatitis C Screening Completed 08/17/2019 Hepatitis B Vaccines Completed 05/13/2021, 04/03/2020, 02/02/2020 Pneumococcal Vaccine: 50+ Years Completed 09/27/2024, 11/14/2013 HIB Vaccines Aged Out No longer eligi ble based on patient's age to complete this topic HPV Vaccines Aged Out No longer eligi ble based on patient's age to complete this topic Hepatitis A Vaccines Aged Out No long er eligible based on patient's age to complete this topic IPV Vaccines Aged Out No longer eligi ble based on patient's age to complete this topic Meningococcal B Vaccine Aged Out No l onger eligible based on patient's age to complete this topic Meningococcal Vaccine Aged Out No alda uyen eligible based on patient's age to complete this topic RSV under 20 months Aged Out No longe r eligible based on patient's age to complete this topic Rotavirus Vaccines Aged Out No longer eligible based on patient's age to complete this topic Procedures Procedure Name Priority Date/Time Associated Diagnosis Comments BI MAMMOGRAM DIAGNOSTIC TOMOSYNTHESIS BILATERAL Routine 02/05/2023 1:07 PM EDT THINPREP IMAGING SYSTEM PAP Routine 07/13/2020 10:12 AM EST ZZZ HISTORICAL HEPATITIS C ANTIBODY RFLX Routine 08/17/2019 11:45 AM EDT from Last 3 Months or Most Recently Relevant to Health Maintenance Results * BI Mammogram Diagnostic Tomosynthesis Bilateral (02/05/2023 1:07 PM EDT) Anatomical Region Laterality Modality Breast Bilateral Mammography 02/05/2023 1:07 PM EDT Narrative 02/05/2023 1:54 PM EDT ? [facility] ? [address] ?[place] [address] ? Mammography Report ? Signed ? Patient: Maria Luisa Richardson ?MR#: ?? [id number] ? : 1965 ?Acct:[id number] ? Age/Sex: 57 / F ?ADM Date: 09/21/23 ? Loc: HO.MAMMO ? Attending Dr: James Marcano WORKERS COMPENSATION SPECIALIST ? Ordering Physician: JAMES MARCANO NP ?Results: 2Benign Fin ?? dings ? Date of Service: 02/05/23 ?Follow Up: 1 Year From Orig ?? inal Mammogram ? Procedure(s): MM tomosynthesis diagnostic BI ?? Accession Number(s): [id number] ? cc: JAMES MARCANO NP ? EXAMINATION: ?? MM DIAGNOSTIC DIGITAL BREAST TOMOSYNTHESIS, BILATERAL ? CLINICAL INFORMATION: ? Follow-up possible left focal asymmetry central left MLO view and far ?? medial, middle one third on left CC view. No ultrasound correlate seen ?? on previous ultrasound dated 04/04/2022. ? COMPARISON: ?? Mammography: 04/04/2022, 03/04/2022, 06/06/2011. ? TECHNIQUE: ?? Digital breast tomosynthesis is performed in both the craniocaudal and ?? mediolateral oblique views along with computer-aided detection (CAD). ?? Synthesized 2D images are generated from the tomosynthesis. ? FINDINGS: ?? There are scattered areas of fibroglandular density (ACR BI-RADS breast ?? composition Category b). ? There are no suspicious masses, suspicious grouped calcifications, or ?? areas of architectural distortion. The previously questioned foci of ?? asymmetry/architectural distortion do not persist on today's exam. The ?? parenchymal pattern is stable from prior exams. ? MM/MM tomosynthesis diagnostic BI ?? IMPRESSION: ?? No persistent findings suspicious for malignancy in either breast. ?? Recommend returning to routine screening. ? ASSESSMENT: ? BI-RADS BI-RADS 2 - Benign Findings ? RECOMMENDATION: ?? 1 year F/U ? Results were provided to the patient at time of visit by the ?? technologist. ? This patient's information was entered into a reminder system with a ?? target due date for their next mammogram. ? Dictated By: ?Dewayne Whitlock MD ? Signed By: ?<Electronically signed by Dewayne Whitlock MD in OV> ?02/05/23 1350 ? DD/ 1307 ? TD/TT: ? Veterinary Medicine Doctor: ? Procedure Note Donotuseinterpreter, Image - 02/06/2023 [place] [facility] [address] [place] [address] Mammography Report Signed Patient: Maria Luisa Richardson HMR#: [id number] : 1965Acct:[id number] Age/Sex: 57 / FADM Date: 02/05/23 Loc: HO.MAMMO Attending Dr: James Marcano NP Ordering Physician: JAMES MARCANO NPResults: 2Benign Chao mead Date of Service: 02/05/23Follow Up: 1 Year From Orig inal Mammogram Procedure(s): MM tomosynthesis diagnostic BI Accession Number(s): [id number] cc: JAMES MARCANO NP EXAMINATION: MM DIAGNOSTIC DIGITAL BREAST TOMOSYNTHESIS, BILATERAL CLINICAL INFORMATION: Follow-up possible left focal asymmetry central left MLO view and far medial, middle one third on left CC view. No ultrasound correlate seen on previous ultrasound dated 04/04/2022. COMPARISON: Mammography: 04/04/2022, 03/04/2022, 06/06/2011. TECHNIQUE: Digital breast tomosynthesis is performed in both the craniocaudal and mediolateral oblique views along with computer-aided detection (CAD). Synthesized 2D images are generated from the tomosynthesis. FINDINGS: There are scattered areas of fibroglandular density (ACR BI-RADS breast composition Category b). There are no suspicious masses, suspicious grouped calcifications, or areas of architectural distortion. The previously questioned foci of asymmetry/architectural distortion do not persist on today's exam. The parenchymal pattern is stable from prior exams. MM/MM tomosynthesis diagnostic BI IMPRESSION: No persistent findings suspicious for malignancy in either breast. Recommend returning to routine screening. ASSESSMENT: BI-RADS BI-RADS 2 - Benign Findings RECOMMENDATION: 1 year F/U Results were provided to the patient at time of visit by the technologist. This patient's information was entered into a reminder system with a target due date for their next mammogram. Dictated By: Dewayne Whitlock MD Signed By: <Electronically signed by Dewayne Whitlock MD in OV> 02/05/23 1350 DD/ 1307 TD/TT: Veterinary Medicine Doctor: James BRENNAN IMG BI PROCEDURES Edited Result - Final * THINPREP TIS PAP (07/13/2020 10:12 AM EST) Clinical Information: None given [facility] COMMENT SEE COMMENT [facility] Comment: EXPLANATORY NOTE: ? The Pap is a screening test for cervical cancer. It is ?? not a diagnostic test and is subject to false negative ?? and false positive results. It is most reliable when a ?? satisfactory sample, regularly obtained, is submitted ?? with relevant clinical findings and history, and when ?? the Pap result is evaluated along with historic and ?? current clinical information. ?? NO COLLECTION DATE RECEIVED. WE HAVE USED THE DATE THE SPECIMEN WAS RECEIVED BY THIS LABORATORY THE COLLECTION DATE. IF THIS IS INCORRECT, PLEASE CONTACT CLIENT SERVICES. PHONE NUMBER: ?? COMMENT: This Pap test has been evaluated with computer assisted technology. [facility] [employer] Server : SEE COMMENT [facility] Comment: RK, CT(ASCP) CT screening location: [address] ??[address] Infection Trichomonas vaginalis identified. [facility] Interpretation/R esult: Negative for intraepithelial lesion or malignancy. [facility] LMP: NONE [facility] Prev. BX: NONE [facility] Prev. PAP: NONE [facility]IV[facility] Review [employer] : SEE COMMENT [facility] Comment: SL, CT(ASCP) CT screening location: [address] ??[address] SOURCE: None given [facility] Statement Of Adequacy: SEE COMMENT [facility] Comment: Satisfactory for evaluation. Endocervical/transformation zone component absent. Age and/or menstrual status not provided 07/13/2020 10:1 2 AM EST Historical Provider LAB PATHOLOGY ORDERABLES Final Result Performing Organization Address [facility] Co de Phone Number [facility] [address] * HEPATITIS C ANTIBODY RFLX (08/17/2019 11:45 AM EDT) HEPATITIS C ANTIBODY NONREACTIVE NONREACTIVE [facility] Comment: Antibodies to HCV not detected; does not exclude early acute HCV infection. 08/17/2019 11:4 5 AM EDT Historical Provider HISTORICAL/NON ORDERABLE LABS Final Result Performing Organization Address [facility] de Phone Number [facility] [address] from Last 3 Months or Most Recently Relevant to Health Maintenance Insurance * Guarantor: Maria Luisa Valladares Account Type Relation to Patient Date of Phone Billing Address Personal/Family Self [address] [place] [address] Care Teams Manager Paper Relationship Specialty Start Date End Date James Marcano ANP [address] [place] [phone] PCP - General Family Medicine 01/04/21
[2024-09-28 13:34] LABS: MANUAL DIFF FLAG NO
[2024-09-28 13:42] LABS: Basophils Percent Auto 0.3 % (0-2); Eosinophils Absolute Auto 0.1 X10*3/uL (0.0-0.4); Hematocrit 37.9 % (37.0-47.0); Imm Gran Abs Auto 0.02 X10*3/uL (0.00-0.03); Imm Gran Pct Auto 0.3 % (0.0-0.4); Lymphocytes Percent Auto 27.9 % (20-40); Mean Corpuscular HGB Conc 31.7 g/dl (31.0-35.0); Mean Corpuscular Hemoglobin 29.6 pg (27.0-33.0); Mean Corpuscular Volume 93.6 fL (80.0-98.0); Mean Platelet Volume 11.7 fL (9.4-12.3); Monocytes Absolute Auto 0.6 X10*3/uL (0.1-1.2); Monocytes Percent Auto 7.9 % (2-11); Neutrophils Absolute Auto 4.4 x10*3/uL (2.0-8.3); Neutrophils Percent Auto 62.6 % (45-73); Platelet Count 229 X10*3/uL (160-400); Red Blood Count 4.05 X10*6/uL (4.20-5.50); Red Cell Distribution Width 13.2 % (11.0-16.0)
[2024-09-28 14:45] LABS: Alanine Aminotransferase 18 U/L (0-31); Albumin Level 4.2 g/dL (3.5-5.0); Alkaline Phosphatase 77 U/L (39-117); Anion Gap 12 (12-20); Aspartate Amino Transferase 22 U/L (5-31); Bilirubin Total 0.5 mg/dL (0.0-1.0); Blood Urea Nitrogen 16 mg/dL (9-16); Calcium 9.2 mg/dL (8.4-10.2); Carbon Dioxide 29 mmol/L (22-29); Chloride 106 mmol/L (96-108); Cholesterol 228 mg/dL (<200); Estimated Glomerular Filt Rate > 60; Glucose Random 88 mg/dL (60-115); HDL Cholesterol 51 mg/dL (>40); LDL Cholesterol Calculated 151 mg/dL (<100); Potassium 3.8 mmol/L (3.3-5.1); Sodium 143 mmol/L (135-145); Total Protein 7.2 g/dL (6.5-8.0); Triglycerides 134 mg/dL (<150)
== END 2024-09-28 10:39 | disposition home or self-care (01) ==
LOC: HO.HHCL 10:38
PROVIDERS: Visit Provider Nurse Practitioner Primary Care
DX: Z00.00 Encounter for general adult medical examination without abnormal findings (principal); E78.2 Mixed hyperlipidemia
CPT/HCPCS: 36415; 80053; 80061; 82306; 85025

== ENCOUNTER 2024-10-01 10:19 | Outpatient (REF) | payer MEDICAID, SELFPAY | END 2024-10-01 10:20 | disposition home or self-care (01) | LOC: HO.MAMMO 10:19 | PROVIDERS: PCP Nurse Practitioner Primary Care; Visit Provider Nurse Practitioner Primary Care | DX: Z12.31 Encounter for screening mammogram for malignant neoplasm of breast (principal) | CPT/HCPCS: 77063; 77067 ==

== ENCOUNTER → 2024-10-01 10:30 | Outpatient (BNV) | payer MEDICAID, SELFPAY | PROVIDERS: PCP Nurse Practitioner Primary Care; Visit Provider Internal Medicine | DX: Z12.31 Encounter for screening mammogram for malignant neoplasm of breast (principal) | CPT/HCPCS: 77063; 77067 ==

== ENCOUNTER 2024-10-11 16:02 | Outpatient (REF) | payer MEDICAID, SELFPAY ==
--- OUTSIDE RECORDS SUMMARY | 2024-10-11 16:05 | XMS_ITS | Encounter Summary ---
Author Organization [employer] Address [address] [facility] 7t [place] [address] Care Team Providers Care Graduate Civil Engineer Name Role Phone Vivian Sims MIKA Primary Care Provider [phone] Encounter Details Date Type Department Care Team (Latest Contact Info) Description 10/11/2024 Travel Social History Tobacco Use Types Packs/Day [...] Access Q2 Not on file 09/27/2024 Comments No Sex and Gender Information Value Date Recorded Sex Assigned at Female 03/17/2022 10:36 AM EDT Legal Sex Female 10:36 AM EDT Gender Identity Female 03/17/2022 10:36 AM EDT Sexual Orientation Choose not to disclose 2021 10:36 AM EDT documented as of this encounter Plan of Treatment Upcoming Encounters Date Type Department Care Team (Late st Contact Info) Description 12/20/2024 9:45 AM EDT Office Visit [facility] [address] [place] [address] Bethany Dotson, OD [address] [place] [address] 12/29/2024 11:00 AM EDT Office Visit [facility] [address] [place] [address] Vivian Sims ANP [address] [place] [address] documented as of this encounter Visit Diagnoses Not on filedocumented in this encounter Additional Health Concerns Assessment Noted Time PHQ-9 Depression Total Score: 0 09/28/19 25 1:52 PM EDT documented as of this encounter Care Teams Graduate Civil Engineer Relationship Specialty Start Date End Date Vivian Sims ANP [address] [place] [phone] PCP - General Family Medicine 01/04/21 documented as of this encounter
[2024-10-12 17:24] LABS: Trichomonas vaginalis RNA NOT DETECTED (NOT DETECTED)
== END 2024-10-11 16:03 | disposition home or self-care (01) ==
LOC: HO.HHCLNP 16:02
PROVIDERS: Visit Provider Advanced Practice Midwife
DX: Z11.3 Encounter for screening for infections with a predominantly sexual mode of transmission (principal)
CPT/HCPCS: 87661

== ENCOUNTER 2025-03-21 13:13 | Outpatient (REF) | payer MEDICAID, SELFPAY ==
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
--- OUTSIDE RECORDS SUMMARY | 2025-03-21 16:10 | XMS_ITS | Encounter Summary ---
Author Organization [employer] Address [address] [place] [address] [address] [place] [address] Care Team Providers Care Rubber Goods Assembler Name Role Phone Vivain Sims Primary Care Provider [phone] Encounter Details Date Type Department Care Team (Late st Contact Info) Description 11/06/2022 Abstract [facility] [address] [place] [phone] Vivian Sims ANP [address] [place] [phone] Social History Tobacco Use Types Packs/Day Years [...] Description 05/08/2025 3:30 PM EST Office Visit [facility] [address] [place] [phone] Vivian Sims ANP [address] [place] [address] 05/30/2025 10:30 AM EST Office Visit [facility] [address] [place] [phone] Bethany Dotson, OD [address] [place] [address] documented as of this encounter Visit Diagnoses Not on filedocumented in this encounter Care Teams Rubber Goods Assembler Relationship Specialty Start Date End Date Vivian Sims ANP [address] [place] [phone] PCP - General Family Medicine 01/04/21 documented as of this encounter
--- OUTSIDE RECORDS SUMMARY | 2025-03-21 16:10 | XMS_ITS | Clinical Summary ---
Author Organization [employer] Address [address] [place] [address] 7 [place] [address] Care Team Providers Care Forensic Psychiatrist Name Role Phone James Marcano MIKA Primary Care Provider [phone] Allergies Active Allergy Reactions Criticality Noted Date Comments Fish Allergy 03/30/2023 Medications * This document contains information received from the source organization and may not represent a complete record from that organization. Calcium Carbonate-Vitamin D (Oyster Shell Calcium/D) 500-5 MG-MCG tabletIndications :Osteoporosis without current pathological fracture, unspecified osteoporosis type Take 1 tab twice daily with food 180 tablet 3 025 Active DULoxetine (Cymbalta) [address] capsuleIndication s:Anxiety,Fibromy algia Take 1 capsule in morning for 1 week. If tolerating, increase to 2 capsules once daily. Do not crush or chew. 60 capsule 2 025 Active naproxen (Naprosyn) 500 MG tabletIndications :Acute left-sided low back pain with left-sided sciatica Take twice daily as needed for pain, take with food 60 tablet 025 Active EPINEPHrine (Epipen) 0.3 MG/0.3ML injection syringeIndication s:Food allergy Inject 0.3 mL (0.3 mg) as directed 1 (one) time if needed for anaphylaxis for up to 1 dose. Inject into upper leg. Call 911 after use. 2 each 1 025 Active albuterol 108 (90 Base) MCG/ACT inhalerIndication s:Mild intermittent asthma in adult without complication Inhale 2 puffs every 6 (six) hours if needed for wheezing. 18 g 2 025 Active albuterol 108 (90 Base) MCG/ACT inhalerIndication s:Mild intermittent asthma in adult without complication Inhale 2 puffs every 6 (six) hours if needed for wheezing. 18 g 2 023 2024 Discontinued(R eorder (will not trigger notification to Pharmacy)) Calcium Carbonate-Vitamin D (Oyster Shell Calcium/D) 500-5 MG-MCG tablet Take 1 tablet by mouth. 008 2024 Discontinued(R eorder (will not trigger notification to Pharmacy)) simvastatin (Zocor) 40 MG tabletIndications :Mixed hyperlipidemia Take 1 tablet (40 mg) by mouth at bedtime. 90 tablet 3 024 2024 Discontinued(T herapy completed) EPINEPHrine (Epipen) 0.3 MG/0.3ML injection syringeIndication s:Food allergy Inject 0.3 mL (0.3 mg) as directed 1 (one) time if needed for anaphylaxis for up to 1 dose. Inject into upper leg. Call 911 after use. 2 each 1 024 2024 Discontinued(R eorder (will not trigger notification to Pharmacy)) cholecalciferol (Vitamin D-3) 25 MCG (1000 UT) capsuleIndication s:Vitamin D deficiency Take 1 capsule (25 mcg) by mouth Once per day. 90 capsule 025 2024 Active Problems Problem Noted Date Diagnosed Date Anxiety 03/21/2025 Vitamin D deficiency 09/28/2024 Spider veins of both lower extremities 4 Kidney stone 03/30/2023 Assessment & Plan (03/30/2023 10:59 AM EST): Possible kidney stone, if symptoms persist or worse I advise to go to ED Fibromyalgia 01/29/2023 Asthma in adult without complication 01/29/2023 Adjustment disorder with anxious mood 01/29/2023 Assessment & Plan (02/13/2023 2:08 PM EDT): Patient with Adjustment Disorder symptoms and family stress. Reason for follow- up BE is to assess symptoms and provide BH referral status. Transitioning to a new routine after resigning to her job, raising her grandchildren and having difficult relationship with her are leading to an increase of symptoms. No SI/HI or self-harm risk. Referral for OP services placed on 02/03 to [facility]. Maria Luisa received a call from [facility] for the intake process. However, patient declined services thinking that [facility] clinician was her long-term therapist. Clinician [...] unhealthy relationships. PLAN: 1. Follow up with [facility]: Not recommended for follow-up 2. Patient goal [...] her . PLAN: 1. Follow up with [facility]: Not recommended for follow-up 2. Patient goal [...] for OP services placed on 02/03 to [facility]. Maria Luisa received a call from [facility] for the intake process. However, patient declined services thinking that [facility] clinician was her long-term therapist. Clinician [...] unhealthy relationships. PLAN: 1. Follow up with [facility]: Not recommended for follow-up 2. Patient goal is to gradually adjust to new routine and be able to manage stress 3. Behavioral Recommendations a. Set-up boundaries in interpersonal relationships b. Prioritize self-care and practice mindfulness techniques frequently. c. Call [facility] back to start intake process Osteoporosis 05/09/2020 BRCA negative 08/18/2017 Family history of multiple myeloma 11/14/2013 Family history of prostate carcinoma 11/14/2013 Hyperlipidemia 09/06/2012 Resolved Problems Problem Noted Date Diagnosed Date Resolved Date UTI symptoms 03/30/2023 03/21/2025 Assessment & Plan (03/30/2023 10:58 AM EST): Drink plenty of water, do not hold urine Encounters Date Type Department Care Team Description 03/21/2025 11:15 AM EST Office Visit [facility] [address] [place] [phone] James Marcano ANP Anxiety (Primary Dx); Fibromyalgia; Encounter for immunization; Osteoporosis without current pathological fracture, unspecified osteoporosis type; Vitamin D deficiency; Acute left-sided low back pain with left-sided sciatica; Atypical chest pain; Stress; Mild intermittent asthma in adult without complication; Screening for malignant neoplasm of colon; Routine screening for STI (sexually transmitted infection); Great toe pain, left; Mixed hyperlipidemia; Food allergy 03/21/2025 Travel 03/20/2025 Telephone [facility] [address] [place] [address] James Marcano ANP Nurse Triage 12/28/2024 Telephone [facility] [address] [place] [address] James Marcano ANP chart prep 12/20/2024 Orders Only [facility] [address] [place] [address] James Marcano ANP Vitamin D deficiency (Primary Dx) 12/19/2024 Refill [facility] [address] [place] [address] James Marcano ANP Vitamin D deficiency from Last 3 Months Immunizations Immunization Administration Dates Next Due Hep B, adult 05/13/2021,04/03/2020,02/02/2020 INFLUENZA INJECTABLE QUADRIV ALANT CCIIV4 MDCK Multi-dose vial 04/01/2017 Influenza injectable quadriv alent preservative free 05/26/2023,05/13/2021,04/03/2020 Influenza, IIV3, injectable 04/18/2013 Influenza, injectable, quadr ivalent, preservative free, pediatric 04/18/2013 Influenza, seasonal, injecta ble, preservative free 03/21/2025,03/28/2016,06/04/2015 MMR 02/02/2020 Pneumococcal Conjugate PCV 20 09/27/2024 Pneumococcal Polysaccharide PPSV23 11/14/2013 Tdap 09/27/2024,11/14/2013 Family History Medical History Relation Name Comments Stroke Mother Uterine cancer Mother's Sister Heart disease Other Premature CHD Other Breast cancer Neg Hx Ovarian cancer Neg Hx Relation Name Status Comments Mother Mother's Sister Other Social History Tobacco Use Types Packs/Day [...] F) 03/21/2025 11:12 AM EST Respiratory Rate 20 10/11/2024 9:13 AM EDT Oxygen Saturation 98% 10/11/2024 9:13 AM EDT Inhaled Oxygen Concentration - - Weight 62.4 kg (137 lb 8 oz) 03/21/2025 11:12 AM EST Height 160 cm (5' 3 ) 03/21/2025 11:12 AM EST Body Mass Index 24.36 03/21/2025 11:12 AM EST Plan of Treatment Upcoming Encounters Date Type Department Care Team (Late st Contact Info) Description 05/08/2025 3:30 PM EST Office Visit [facility] [address] [place] [address] James Marcano, ANP [address] [place], [place] [phone] 05/30/2025 10:30 AM EST Office Visit [facility] OPTOMETRY [address] [place] [address] Bethany Dotson, OD [address] [place] [address] Health Maintenance Due Date Last Done Comments CT Colonography 1965 Colonoscopy 1965 Colorectal Cancer Screening 1965 FIT DNA/Cologuard 1965 FIT 1965 FOBT 1965 HIV Screening 1965 Sigmoidoscopy 1965 Zoster Vaccines (1 of 2) 2014 RSV Patients and Patients Aged 60 years or older (1 - Risk 60-74 years 1-dose series) 2024 COVID-19 Vaccine (3 - season) 2025 10/10/2020, 09/08/2020 HPV/Cotest 07/13/2025 Pap Smear 07/13/2025 07/13/2020 Alcohol/Substance Use Screening 09/27/2025 09/27/2024 Depression Screening 09/27/2025 09/27/2024, 09/28/19 25 Disability Screening 09/27/2025 09/27/2024 SDOH Screening 09/27/2025 09/27/2024 Mammogram 10/01/2025 10/01/2024, 01/17, 02/05/2023, Additional history exists Tobacco Screening 03/21/2026 03/21/2025 DTaP/Tdap/Td Vaccines (3 - Td or Tdap) 09/27/2034 09/27/2024, 11/14/2013 Hepatitis C Screening Completed 08/17/2019 Hepatitis B Vaccines Completed 05/13/2021, 04/03/2020, 02/02/2020 Pneumococcal Vaccine: 50+ Years Completed 09/27/2024, 11/14/2013 Influenza Vaccine Completed 03/21/2025, , 05/13/2021, Additional history exists HIB Vaccines Aged Out No longer eligi [...] Priority Date/Time Associated Diagnosis Comments BI MAMMOGRAM SCREENING TOMOSYNTHESIS BILATERAL Routine 10/01/2024 10:25 AM EDT THINPREP IMAGING SYSTEM PAP Routine 07/13/2020 10:12 AM EST ZZZ HISTORICAL HEPATITIS C ANTIBODY RFLX Routine 08/17/2019 11:45 AM EDT from Last 3 Months or Most Recently Relevant to Health Maintenance Results * BI Mammogram Screening Tomosynthesis Bilateral (10/01/2024 10:25 AM EDT) Anatomical Region Laterality Modality Breast Bilateral Mammography 10/01/2024 10:2 5 AM EDT Narrative 10/08/2024 3:45 PM EDT [facility] [address] [place] [address] Mammography Report Signed Patient: Maria Luisa Richardson MR#: [id number] : 1965 Acct:[id number] Age/Sex: 59 / F ADM Date: 10/01/24 Loc: HO.MAMMO Attending Dr: James Marcano NP Ordering Physician: JAMES MARCANO NP Results: 2Benign Chao mead Date of Service: 10/01/24 Follow Up: 1 Year From Orig inal Mammogram Procedure(s): MM tomosynthesis screening BI Accession Number(s): [id number] cc: JAMES MARCANO NP EXAMINATION: MM SCREENING DIGITAL BREAST TOMOSYNTHESIS, BILATERAL CLINICAL INFORMATION: Screening. Asymptomatic. COMPARISON: Mammography: Comparison is made with available priors TECHNIQUE: Digital breast mammography with tomosynthesis is performed in both the craniocaudal and mediolateral oblique views along with computer-aided detection (CAD). FINDINGS: There are scattered areas of fibroglandular density (ACR BI-RADS breast composition Category b). Left marker clip. There are no significant masses, abnormal calcifications, or other abnormalities. MM/MM tomosynthesis screening BI IMPRESSION: No mammographic evidence of malignancy. ASSESSMENT: BI-RADS BI-RADS 2 - Benign Findings RECOMMENDATION: Routine annual mammography screening. 1 year F/U This examination should not preclude the clinical evaluation of a suspicious palpable abnormality. This patient's information was entered into a reminder system with a target due date for their next mammogram. Electronically signed by: Alejandrina Persaud DO 10/08/2024 03:42 PM EDT Dictated By: Alejandrina Persaud DO Signed By: <Electronically signed by Alejandrina Persaud DO in OV> 10/08/24 1542 DD/ 1025 TD/TT: 10/01/24 1037 Exceptional Needs Teacher: Procedure Note Donotuseinterpreter, Image - 10/08/2024 [facility] [address] [place] [address] Mammography Report Signed Patient: Maria Luisa Richardson R#: [id number] : 1965Acct:[id number] Age/Sex: 59 / FADM Date: 10/01/24 Loc: MAMMO Attending Dr: James Marcano NP Ordering Physician: JAMES MARCANO NPResults: 2Benidari mead Date of Service: 10/01/24Follow Up: 1 Year From Orig inal Mammogram Procedure(s): MM tomosynthesis screening BI Accession Number(s): [id number] cc: JAMES MARCANO NP EXAMINATION: MM SCREENING DIGITAL BREAST TOMOSYNTHESIS, BILATERAL CLINICAL INFORMATION: Screening. Asymptomatic. COMPARISON: Mammography: Comparison is made with available priors TECHNIQUE: Digital breast mammography with tomosynthesis is performed in both the craniocaudal and mediolateral oblique views along with computer-aided detection (CAD). FINDINGS: There are scattered areas of fibroglandular density (ACR BI-RADS breast composition Category b). Left marker clip. There are no significant masses, abnormal calcifications, or other abnormalities. MM/MM tomosynthesis screening BI IMPRESSION: No mammographic evidence of malignancy. ASSESSMENT: BI-RADS BI-RADS 2 - Benign Findings RECOMMENDATION: Routine annual mammography screening. 1 year F/U This examination should not preclude the clinical evaluation of a suspicious palpable abnormality. This patient's information was entered into a reminder system with a target due date for their next mammogram. Electronically signed by: Alejandrina Persaud DO 10/08/2024 03:42 PM EDT RP Dictated By: Alejandrina Persaud DO Signed By: <Electronically signed by Alejandrina Persaud DO in OV> 10/08/24 1542 DD/ 1025 TD/TT: 10/01/24 1037 Exceptional Needs Teacher: James [facility]ENNA[facility] BI PROCEDURES Edited Result - Final * THINPREP TIS PAP (07/13/2020 10:12 AM EST) Clinical Information: None given [facility] COMMENT SEE COMMENT [facility] Comment: EXPLANATORY NOTE: The Pap is a screening test for cervical cancer. It is not a diagnostic test and is subject to false negative and false positive results. It is most reliable when a satisfactory sample, regularly obtained, is submitted with relevant clinical findings and history, and when the Pap result is evaluated along with historic and current clinical information. NO COLLECTION DATE RECEIVED. WE HAVE USED THE DATE THE SPECIMEN WAS RECEIVED BY THIS LABORATORY THE COLLECTION DATE. IF THIS IS INCORRECT, PLEASE CONTACT CLIENT SERVICES. PHONE NUMBER: COMMENT: This Pap test has been evaluated with computer assisted technology. [facility] Administrative Judge : SEE COMMENT [facility] Comment: RK, CT(ASCP) CT screening location: [facility] [address] Infection Trichomonas vaginalis identified. [facility] Interpretation/R esult: Negative for intraepithelial lesion or malignancy. [facility] LMP: NONE [facility]IV[facility] Prev. BX: NONE [facility]IVEN [facility] Prev. PAP: NONE GIVEN [facility] Review Administrative Judge : SEE COMMENT [facility] Comment: SL, CT(ASCP) CT screening location: [address] [address] SOURCE: None given [facility] Statement Of Adequacy: SEE COMMENT [facility] Comment: Satisfactory for evaluation. Endocervical/transformation zone component absent. Age and/or menstrual status not provided 07/13/2020 10:1 2 AM EST Historical Provider LAB PATHOLOGY ORDERABLES Final Result Performing Organization Address [facility] Co de Phone Number [facility] [address] * HEPATITIS C ANTIBODY RFLX (08/17/2019 11:45 AM EDT) HEPATITIS C ANTIBODY NONREACTIVE NONREACTIVE [facility] Comment: Antibodies to HCV not detected; does not exclude early acute HCV infection. 08/17/2019 11:4 5 AM EDT us Historical Provider HISTORICAL/NON ORDERABLE LABS Final Result Performing Organization Address [facility] Co de Phone Number [facility] [address] from Last 3 Months or Most Recently Relevant to Health Maintenance [place] [address] [address] [facility] Care Teams Forensic Psychiatrist Relationship Specialty Start Date End Date James Marcano ANP [address] [place] [id number] PCP - General Family Medicine 01/04/21
--- OUTSIDE RECORDS SUMMARY | 2025-03-21 16:10 | XMS_ITS ---
Author Name [facility] Organization Unknown Care Team Organization Name Specialty Phone Email Start Date End Da te [facility] Liang Gomez [facility] 03/25/2022 01/04/2024
--- OUTSIDE RECORDS SUMMARY | 2025-03-21 16:10 | XMS_ITS | Encounter Summary ---
Author Organization [employer] Address [address] [facility] [address]t [place] [address] Care Team Providers Care Membership Administrator Name Role Phone Vivian Sims MIKA Primary Care Provider [phone] Encounter Details Date Type Department Care Team (Latest Contact Info) Description 03/21/2025 Travel Social History Tobacco Use Types Packs/Day [...] Description 05/08/2025 3:30 PM EST Office Visit [facility] [address] [place] [address] Vivian Sims ANP [address] [place] [phone] 05/30/2025 10:30 AM EST Office Visit [facility] OPTOMETRY [address] [place] [address] Tarka, Bethany, OD [address] [place] [address] documented as of this encounter Visit Diagnoses Not on filedocumented in this encounter Additional Health Concerns Assessment Noted Time PHQ-9 Depression Total Score: 0 09/28/19 25 1:52 PM EDT documented as of this encounter Care Teams Membership Administrator Relationship Specialty Start Date End Date Vivian Sims ANP [address] [place] [phone] PCP - General Family Medicine 01/04/21 documented as of this encounter
--- OUTSIDE RECORDS SUMMARY | 2025-03-21 16:10 | XMS_ITS | Encounter Summary ---
Author Organization [employer] Address [address] [place] [address] 7 [place] [address] Care Team Providers Care Width Stripper Name Role Phone Vivian Sims Primary Care Provider [phone] Reason for Visit * Reason Onset Date Comments Nurse Triage 03/20/2025 Encounter Details Date Type Department Care Team ([facility] st Contact Info) Description 03/20/2025 Telephone [facility] [address] [place], [place] [phone] Vivian Sims ANP [address] [place] [address] Nurse Triage Social History Tobacco Use Types Packs/Day Years [...] encounter Miscellaneous Notes * Telephone Encounter - Leroy Muñoz RN - 03/20/2025 2:04 PM EST TC placed to patient. Patient c/o dizziness, moderate to severe headache, pain in chest x 1 week. Patient reported symptoms are worsening. RN advised patient to go to the ED for further evaluation. 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 RN scheduled an appt with the patient PCP for further evaluation. RN advised patient if her symptoms worsen overnight to go to the ED for further evaluation. Patient verbalized understanding. Protocol Used: Dizziness (Adult) Protocol-Based Disposition: Go to Office or Video Visit Now Video visit not offered Positive Triage Questions: * Lightheadedness (dizziness) present now, after 2 hours of rest and fluids * Patient wants to be seen * All higher-acuity triage questions were negative Care Advice Discussed: * Reassurance and Education - Dizziness From Standing * Sit Up Slowly Before Standing * Drink Fluids * Lie Down and Rest * Prevention - Dizziness * Reasons To Call Back - After 2 hours of rest and fluids and you are still feeling dizzy - You pass out (faint) or are too weak to stand - You become worse * Telephone Encounter - Mason Finesse - 03/20/2025 11:59 AM EST Symptoms: Foot or Ankle Pain - Not From Injury, Lethargic (Tired), Dizziness, Loss of Appetite Outcome: Schedule an urgent appointment (within 1 hour) or talk to a nurse or provider soon Reason: Severe pain now The caller accepted this outcome. Contact pt at [phone] documented in this encounter Plan of Treatment Upcoming Encounters Date Type Department Care Team (Late st Contact Info) Description 05/08/2025 3:30 PM EST Office Visit [facility] [address] [place] [address] Vivian Sims ANP [address] [place] [address] 05/30/2025 10:30 AM EST Office Visit [facility] OPTOMETRY [address] [place], [place] [phone] TarBethany vaca, OD [address] [place] [address] documented as of this encounter Visit Diagnoses Not on filedocumented in this encounter Additional Health Concerns Assessment Noted Time PHQ-9 Depression Total Score: 0 09/28/19 25 1:52 PM EDT documented as of this encounter Care Teams Width Stripper Relationship Specialty Start Date End Date Vivian Sims ANP [address] [place] [phone] PCP - General Family Medicine 01/04/21 documented as of this encounter
--- OUTSIDE RECORDS SUMMARY | 2025-03-21 16:10 | XMS_ITS | Encounter Summary ---
Author Organization [employer] Address [address] [facility] [address] [place] [address] Care Team Providers Care Faculty Support Coordinator Name Role Phone Vivian Sims Primary Care Provider [phone] Reason for Visit * Reason Onset Date Comments Reschedule 06/23/2023 Encounter Details Date Type Department Care Team ([facility] st Contact Info) Description 06/23/2023 Telephone [facility] [address] [place], [place] [phone] Vivian Sims ANP [address] [place] [address] Reschedule Social History Tobacco Use Types Packs/Day [...] Description 05/08/2025 3:30 PM EST Office Visit [facility] [address] [place] [address] Vivian Sims ANP [address] [place] [address] 05/30/2025 10:30 AM EST Office Visit [facility] OPTOMETRY [address] [place] [address] Bethany Dotson, OD [address] [place] [address] documented as of this encounter Visit Diagnoses Not on filedocumented in this encounter Additional Health Concerns Assessment Noted Time PHQ-9 Depression Total Score: 4 02/04/20 23 10:01 AM EDT documented as of this encounter Care Teams Faculty Support Coordinator Relationship Specialty Start Date End Date Vivian Sims ANP [address] [place] [address] PCP - General Family Medicine 01/04/21 documented as of this encounter
[2025-03-21 16:12] LABS: MANUAL DIFF FLAG NO
[2025-03-21 16:15] LABS: Hematocrit 39.6 % (37.0-47.0); Hemoglobin 12.3 g/dl (12.0-16.0); Imm Gran Abs Auto 0.01 X10*3/uL (0.00-0.03); Imm Gran Pct Auto 0.1 % (0.0-0.4); Lymphocytes Absolute Auto 1.9 X10*3/uL (1.2-4.9); Mean Corpuscular HGB Conc 31.1 g/dl (31.0-35.0); Mean Corpuscular Hemoglobin 29.1 pg (27.0-33.0); Mean Corpuscular Volume 93.6 fL (80.0-98.0); NRBC Abs Auto 0.000 X10*3/uL (0.0-0.012); NRBC Pct Auto 0.0 /100WBC (0.0-0.2); Platelet Count 240 X10*3/uL (160-400); Red Blood Count 4.23 X10*6/uL (4.20-5.50); White Blood Count 6.8 X10*3/uL (4.8-10.8)
[2025-03-21 16:38] LABS: Cholesterol 241 mg/dL (<200); HDL Cholesterol 53 mg/dL (>40); Triglycerides 150 mg/dL (<150); Uric Acid 4.3 mg/dL (2.4-5.7)
[2025-03-22 10:40] LABS: HIV Num 1 0.06 S/CO (0.00-0.99)
[2025-03-22 10:48] LABS: Syphilis Screen Nonreactive (Nonreactive)
== END 2025-03-21 13:14 | disposition home or self-care (01) ==
LOC: HO.HHCL 13:13
PROVIDERS: PCP Nurse Practitioner Primary Care; Visit Provider Nurse Practitioner Primary Care
DX: Z11.4 Encounter for screening for human immunodeficiency virus [HIV] (principal); E78.2 Mixed hyperlipidemia; M79.675 Pain in left toe(s); F41.9 Anxiety disorder, unspecified; E55.9 Vitamin D deficiency, unspecified
CPT/HCPCS: 36415; 80061; 82306; 84443; 84550; 85025; 86780; 87389

== ENCOUNTER 2025-05-08 18:26 | Outpatient (REF) | payer MEDICAID, SELFPAY ==
--- OUTSIDE RECORDS SUMMARY | 2025-05-08 15:30 | XMS_ITS | Encounter Summary ---
Author Organization [employer] Address [address] [facility] 7 [place] [address] Care Team Providers Care Spiral Runner Name Role Phone Vivian Sims Primary Care Provider [phone] Encounter Details Date Type Department Care Team (Late st Contact Info) Description 05/08/2025 3:30 PM EST Office Visit [facility] [address] [place], [place] [phone] Vivian Sims ANP [address] [place], [place] [phone] Fibromyalgia (Primary Dx); Spider veins of both lower extremities; Dysuria; Varicose veins of both lower extremities with pain Social History Tobacco Use Types Packs/Day Years Used Date Smoking Tobacco: Never Passive Smoke Exposure: Never Smokeless Tobacco: Never Tobacco Cessation:Counseling Given: Not Answered Alcohol Use Standard Drinks/Week Comments Not Currently 0 (1 standard drink = 0.6 oz pur e alcohol) Depression Answer Date Recorded Patient Health Questionnaire-9 Score 21 03/23/2025 Patient Health Questionnaire-9 Score 21 03/23/2025 Last PHQ-9: Questionnaire Data Not on file 1 05/23/2024 Housing Stability Answer Date Recorded What is [...] Answer Date Recorded Patient Health Questionnaire-2 Score 6 03/23/2025 Internet Access Answer Date Recorded Internet Access [...] Sign Reading Time Taken Comments Blood Pressure 120/80 05/08/2025 3:45 PM EST Pulse 82 05/08/2025 3:45 PM EST Temperature 36.2 C (97.1 F) 05/08/2025 3:45 PM EST Respiratory Rate 20 05/08/2025 3:45 PM EST Oxygen Saturation 98% 05/08/2025 3:45 PM EST Inhaled Oxygen Concentration - - Weight 63.7 kg (140 lb 8 oz) 05/08/2025 3:45 PM EST Height 160 cm (5' 3 ) 05/08/2025 3:45 PM EST Body Mass Index 24.89 05/08/2025 3:45 PM EST documented in this encounter Plan of Treatment Upcoming Encounters Date Type Department Care Team (Late st Contact Info) Description 05/30/2025 10:30 AM EST Office Visit [facility] [address] [place] [address] Bethany Dotson, BRIAN [address] [place] [address] 07/14/2025 11:15 AM EST Telemedicine [facility] [address] [place] [address] Vivian Sims ANP [address] [place] [address] Scheduled Orders Name Type Priority Associated Diagnoses Orde r Schedule Culture, Urine, Routine Microbiology Routine Dysuria Expected: 05/08/2025 (Approximate), Expires: 05/08/2026 documented as of this encounter Procedures Procedure Name Priority Date/Time Associated Diagnosis Comments POCT URINALYSIS DIPSTICK Routine 05/08/2025 4:11 PM EST Dysuria documented in this encounter Results * POCT Urinalysis (05/08/2025 4:11 PM EST) Color, UA Yellow Clarity, UA Clear Glucose, UA Negative Bilirubin, UA Negative Ketones, UA Negative Spec Grav, UA 1.025 Blood, UA Negative Negative, None Detected pH, UA 6.5 Protein, UA Negative Urobilinogen, UA 0.2 Leukocytes, UA Negative Negative, Rare, Trace, 1+ (17), 2+ (35), 3+ (70), Trace (15) Nitrite, UA Negative Negative, None Detected QC Media Lot # [id number] Lot# Expiration Date ,[id number] Urine (Urine, Random) 05/08/2025 4:11 PM EST Vivian BRENNAN POINT OF CARE TEST ENTER/EDIT OR DERABLES Final Result documented in this encounter Visit Diagnoses Diagnosis Fibromyalgia- Primary Unspecified myalgia and myositis Spider veins of both lower extremities Dysuria Varicose veins of both lower extremities with pain documented in this encounter Additional Health Concerns Assessment Noted Time PHQ-9 Depression Total Score: 21 025 8:44 AM EST documented as of this encounter Care Teams Spiral Runner Relationship Specialty Start Date End Date Vivian Sims ANP [address] [place] [address] PCP - General Family Medicine 01/04/21 documented as of this encounter
--- OUTSIDE RECORDS SUMMARY | 2025-05-08 19:04 | XMS_ITS | Encounter Summary ---
Author Organization [employer] Address [address] [place] [address] [address] [place] [address] Care Team Providers Care Custodial Worker Name Role Phone Vivian Sims Primary Care Provider [phone] Encounter Details Date Type Department Care Team (Late st Contact Info) Description 11/06/2022 Abstract [facility] [address] [place] [phone] Vivian Sims ANP [address] [place] [phone] Social History Tobacco Use Types Packs/Day Years [...] Description 05/30/2025 10:30 AM EST Office Visit [facility] [address] [place] [address] Bethany Dotson, OD [address] [place] [address] 07/14/2025 11:15 AM EST Telemedicine [facility] [address] [place] [address] Vivian Sims ANP [address] [place] [phone] documented as of this encounter Visit Diagnoses Not on filedocumented in this encounter Care Teams Custodial Worker Relationship Specialty Start Date End Date Vivian Sims ANP [address] [place] [address] PCP - General Family Medicine 01/04/21 documented as of this encounter
--- OUTSIDE RECORDS SUMMARY | 2025-05-08 19:04 | XMS_ITS | Encounter Summary ---
Author Organization [employer] Address [address] [facility] [address] [place] [address] Care Team Providers Care Window Shade Cutter And Mounter Name Role Phone Vivian Sims Primary Care Provider [phone] Reason for Visit * Reason Onset Date Comments Reschedule 06/23/2023 Encounter Details Date Type Department Care Team ([facility] st Contact Info) Description 06/23/2023 Telephone [facility] [address] [place], [place] [phone] Vivian Sims ANP [address] [place] [address] Reschedule Social History Tobacco Use Types Packs/Day [...] Description 05/30/2025 10:30 AM EST Office Visit [facility] [address] [place] [address] Bethany Dotson, OD [address] [place] [address] 07/14/2025 11:15 AM EST Telemedicine [facility] [address] [place] [address] Vivian Sims ANP [address] [place] [address] documented as of this encounter Visit Diagnoses Not on filedocumented in this encounter Additional Health Concerns Assessment Noted Time PHQ-9 Depression Total Score: 4 02/04/20 23 10:01 AM EDT documented as of this encounter Care Teams Window Shade Cutter And Mounter Relationship Specialty Start Date End Date Vivian Sims ANP [address] [place] [phone] PCP - General Family Medicine 01/04/21 documented as of this encounter
--- OUTSIDE RECORDS SUMMARY | 2025-05-08 19:04 | XMS_ITS | Encounter Summary ---
Author Organization [employer] Address [address] [facility] [address] [place] [address] Care Team Providers Care Curriculum Development Coordinator Name Role Phone Vivian Sims Primary Care Provider [phone] Reason for Visit * Reason Onset Date Comments chart prep 05/05/2025 Encounter Details Date Type Department Care Team ([facility] st Contact Info) Description 05/05/2025 Telephone [facility] [address] [place], [place] [phone] Vivian Sims ANP [address] [place] [address] chart prep Social History Tobacco Use Types [...] encounter Miscellaneous Notes * Telephone Encounter - John Narayan [place] - 05/05/2025 11:04 AM EST Chart Prep Labs: done Images: done Referrals: complete Vaccines due: Covid, RSV, and Zoster Screenings: colonoscopy Overdue care gaps: None documented in this encounter Plan of Treatment Upcoming Encounters Date Type Department Care Team (Late st Contact Info) Description 05/30/2025 10:30 AM EST Office Visit [facility] [address] [place] [address] Bethany Dotson, OD [address] [place] [address] 07/14/2025 11:15 AM EST Telemedicine [facility] [address] [place] [address] Vivian Sims ANP [address] [place] [address] documented as of this encounter Visit Diagnoses Not on filedocumented in this encounter Additional Health Concerns Assessment Noted Time PHQ-9 Depression Total Score: 21 025 8:44 AM EST documented as of this encounter Care Teams Curriculum Development Coordinator Relationship Specialty Start Date End Date Vivian Sims ANP [address] [place] [address] PCP - General Family Medicine 01/04/21 documented as of this encounter
--- OUTSIDE RECORDS SUMMARY | 2025-05-08 19:04 | XMS_ITS | Clinical Summary ---
Author Organization [employer] Address [address] [place] [address] 7 [place] [address] Care Team Providers Care Field Automobile Adjuster Name Role Phone Bethany James BRENNAN Primary Care Provider [phone] Allergies Active Allergy Reactions Criticality Noted Date Comments Fish Allergy 03/30/2023 Medications * This document contains information received from the source organization and may not represent a complete record from that organization. Calcium Carbonate-Vitamin D (Oyster Shell Calcium/D) 500-5 MG-MCG tabletIndications: Osteoporosis without current pathological fracture, unspecified osteoporosis type Take 1 tab twice daily with food 180 tablet 3 03/21/20 25 Active EPINEPHrine (Epipen) 0.3 MG/0.3ML injection syringeIndications :Food allergy Inject 0.3 mL (0.3 mg) as directed 1 (one) time if needed for anaphylaxis for up to 1 dose. Inject into upper leg. Call 911 after use. 2 each 1 03/21/20 25 Active albuterol 108 (90 Base) MCG/ACT inhalerIndications :Mild intermittent asthma in adult without complication Inhale 2 puffs every 6 (six) hours if needed for wheezing. 18 g 2 03/21/20 25 Active atorvastatin (Lipitor) 20 MG tabletIndications: Mixed hyperlipidemia Take 1 tablet (20 mg) by mouth Once per day. 30 tablet 11 03/22/20 25 026 Active amitriptyline (Elavil) 10 MG tabletIndications: Fibromyalgia Take 1 tablet (10 mg) by mouth at bedtime. 30 tablet 2 05/08/20 25 026 Active Diclofenac Sodium (Voltaren) 1 % gelIndications:Migdalia icose veins of both lower extremities with pain Apply up to 4x/d to affected joint(s) for pain/swelling 100 g 2 05/08/20 25 Active DULoxetine (Cymbalta) [address] capsuleIndications :Anxiety,Fibromyal joni Take 1 capsule in morning for 1 week. If tolerating, increase to 2 capsules once daily. Do not crush or chew. 60 capsule 2 03/21/20 25 025 Discontin ued(Side effects) naproxen (Naprosyn) 500 MG tabletIndications: Acute left-sided low back pain with left-sided sciatica Take twice daily as needed for pain, take with food 60 tablet 03/21/20 25 025 Discontin ued(Thera py completed ) Active Problems Problem Noted Date Diagnosed Date Anxiety 03/21/2025 Severe episode of recurrent major depressive disorder, without psychotic features (CMS/[facility]ERLY [facility]) 03/21/2025 Vitamin D deficiency 09/28/2024 Spider veins of both lower extremities Kidney stone 03/30/2023 Assessment & Plan (03/30/2023 [...] for OP services placed on 02/03 to [facility]. Maria Luisa received a call from [facility] for the intake process. However, patient declined services thinking that [facility] clinician was her long-term therapist. Clinician [...] unhealthy relationships. PLAN: 1. Follow up with [facility]: Not recommended for follow-up 2. Patient goal is to gradually adjust to new routine and be able to manage stress 3. Behavioral Recommendations a. Set-up boundaries in interpersonal relationships b. Prioritize self-care and practice mindfulness techniques frequently. c. Call [facility] back to start intake process Assessment & [...] her . PLAN: 1. Follow up with [facility]: Not recommended for follow-up 2. Patient goal [...] for OP services placed on 02/03 to [facility]. Maria Luisa received a call from [facility] for the intake process. However, patient declined services thinking that [facility] clinician was her long-term therapist. Clinician [...] unhealthy relationships. PLAN: 1. Follow up with [facility]: Not recommended for follow-up 2. Patient goal is to gradually adjust to new routine and be able to manage stress 3. Behavioral Recommendations a. Set-up boundaries in interpersonal relationships b. Prioritize self-care and practice mindfulness techniques frequently. c. Call [facility] back to start intake process Osteopenia after menopause 05/09/2020 BRCA negative 08/18/2017 Family history of multiple myeloma 11/14/2013 Family history of prostate carcinoma 11/14/2013 Hyperlipidemia 09/06/2012 Resolved Problems Problem Noted Date Diagnosed Date Resolved Date UTI symptoms 03/30/2023 03/21/2025 Assessment & Plan (03/30/2023 10:58 AM EST): Drink plenty of water, do not hold urine Encounters * This document contains information received from the source organization and may not represent a complete record from that organization. Date Type Department Care Team Description 05/08/2025 3:30 PM EST Office Visit [address] [address] James Marcano ANP Fibromyalgia (Primary Dx); Spider veins of both lower extremities; Dysuria; Varicose veins of both lower extremities with pain 05/08/2025 Travel 05/05/[address] [address] James Marcano ANP chart prep 03/22/2025 Results Follow-Up [address] [address] James Marcano ANP TSH W/Reflex to FT4, CBC auto differential, HIV-1/2 Antigen and Antibodies, Fourth Generation, with Reflexes, Additional followed-up results: 3 03/21/2025 11:15 AM EST Office Visit [address] [address] James Marcano ANP Anxiety (Primary Dx); Fibromyalgia; [...] hyperlipidemia; Food allergy 03/21/2025 Travel 03/20/2025 Telephone [facility] [address] [place] [phone] James Marcano, ANP Nurse Triage from Last 3 Months [...] Mass Index 24.89 05/08/2025 3:45 PM EST Plan of Treatment Upcoming Encounters Date Type Department Care Team (Late st Contact Info) Description 05/30/2025 10:30 AM EST Office Visit [facility] OPTOMETRY [address] [place] [address] Bethany Dotson, OD [address] [place] [address] 07/14/2025 11:15 AM EST Telemedicine [facility] [address] [place], [place] [phone] James Marcano ANP [address] [place] [address] Health Maintenance Due Date Last Done Comments CT Colonography 1965 Colonoscopy 1965 Colorectal Cancer Screening 1965 FIT DNA/Cologuard 1965 FIT 1965 FOBT 1965 Sigmoidoscopy 1965 RSV Patients and Patients Aged 60 years or older (1 - Risk 50-74 years 1-dose series) 2014 Zoster Vaccines (1 of 2) 2014 COVID-19 Vaccine (3 - 2024- season) 2025 10/10/2020, 09/08/2020 HPV/Cotest 07/13/2025 Pap Smear 07/13/2025 07/13/2020 Depression Monitoring 09/20/2025 03/23/2025, 025 Alcohol/Substance Use Screening 09/27/2025 09/27/2024 Disability Screening 09/27/2025 09/27/2024 SDOH Screening 09/27/2025 09/27/2024 Mammogram 10/01/2025 10/01/2024, 01/17, 02/05/2023, Additional history exists Tobacco Screening 05/08/2026 05/08/2025 DTaP/Tdap/Td Vaccines (3 - Td or Tdap) 09/27/2034 09/27/2024, 11/14/2013 Hepatitis C Screening Completed 08/17/2019 Hepatitis B Vaccines Completed 05/13/2021, 04/03/2020, 02/02/2020 Pneumococcal Vaccine: 50+ Years Completed 09/27/2024, 11/14/2013 HIV Screening Completed 03/21/2025 Influenza Vaccine Completed 03/21/2025, , 05/13/2021, Additional [...] DIPSTICK Routine 05/08/2025 4:11 PM EST Dysuria LIPID PANEL, STANDARD Routine 03/21/2025 1:20 PM EST Mixed hyperlipidemia URIC ACID Routine 03/21/2025 1:20 PM EST Great toe pain, left SYPHILIS SCREEN Routine 03/21/2025 1:20 PM EST Routine screening for STI (sexually transmitted infection) HIV 1/2 ANTIGEN/ANTIBODY, FOURTH GENERATION W/RFL Routine 03/21/2025 1:20 PM EST Routine screening for STI (sexually transmitted infection) CBC WITH AUTO DIFFERENTIAL Routine 03/21/2025 1:20 PM EST Anxiety TSH W/REFLEX TO FT4 Routine 03/21/2025 1 :20 PM EST Anxiety VITAMIN D,25-OH,TOTAL,IA Routine 03/21/2025 1:20 PM EST Vitamin D deficiency BI MAMMOGRAM SCREENING TOMOSYNTHESIS BILATERAL Routine 10/01/2024 10:25 AM EDT THINPREP IMAGING SYSTEM PAP Routine 07/13/2020 10:12 AM EST ZZZ HISTORICAL HEPATITIS C ANTIBODY RFLX Routine 08/17/2019 11:45 AM EDT from Last 3 Months or Most Recently Relevant to Health Maintenance Results * POCT Urinalysis (05/08/2025 4:11 PM [...] Media Lot # [id number] Lot# Expiration Date [id number] Urine (Urine, Random) 05/08/2025 4:11 PM EST us James Marcano ANP POINT OF CARE TEST ENTER/EDIT OR DERABLES Final Result * Syphilis Screen (03/21/2025 1:20 PM EST) Pathologist [facility] Syphilis Screen Nonreactive Nonreactive [facility] Blood 03/21/2025 1:20 PM EST 03/21/2025 4:09 PM EST us James Marcano ANP LAB BLOOD ORDERABLES Final Resul t [facility] [address] [place] [phone] * (ABNORMAL) Vitamin D, 25-Hydroxy, Total, Immunoassay (03/21/2025 1:20 PM EST) Pathologist [facility] Vitamin D 25-OH Total 26.5(L) >30 ng/mL [facility] Comment: Health Based Reference Values*< 20 ng/mL Mungqfamp61-40 ng/mL Insufficient> 30 ng/mL Sufficient*Velia FERRARI. N Engl J Med. 2007;357:266-280There is no well-established upper level of normal vitamin Dlevels. Some laboratories use 50 ng/mL as an upper limit ofnormal. However, toxicity is patient-dependent and may occurat any level. Careful correlation with the patient'spresentation is necessary and, if there is concern forvitamin D toxicity, treatment should be consideredirrespective of the serum level.Care must be taken in interpreting Vitamin D results fromdifferent laboratories and methodologies. Published datademonstrated that results from patients undergoinghemodialysis may show a negative bias when tested withvarious automated 25-OH vitamin D assays when compared toLC-MS/MS.When testing samples from patients whose predominant form ofVitamin D is Vitamin D2, such as patients receiving VitaminD2 supplementation, results that are subtherapeutic shouldbe confirmed with another method such as LC-MS/MS. Blood Venous blood specimen / Unknown 03/21/2025 1:20 PM EST 03/21/2025 4:09 PM EST James Marcano [facility] LAB BLOOD ORDERABLES Final Resul t Performing Organization Address [facility] [[email or web address]] Co de Phone Number [facility] [address] [place] [phone] * TSH W/Reflex to FT4 (03/21/2025 1:20 PM EST) TSH reflex Free T4 0.71 0.32 - 4.0 uIU/mL [facility] Blood Venous blood specimen / Unknown 03/21/2025 1:20 PM EST 03/21/2025 4:09 PM EST James Marcano [facility] LAB BLOOD ORDERABLES Final Resul t Performing Organization Address City/[facility]/ZIP Co de Phone Number [facility] [address] [place] [phone] * CBC auto differential (03/21/2025 1:20 PM EST) White Blood Count 6.8 4.8 - 10.8 X10*3/uL [facility] Red Blood Count 4.23 4.20 - 5.50 X10*6/uL [facility] Hemoglobin 12.3 12.0 - 16.0 g/dl [facility] Hematocrit 39.6 37.0 - 47.0 % [facility] Mean Corpuscular Volume 93.6 80.0 - 98.0 fL [facility] Mean Corpuscular Hemoglobin 29.1 27.0 - 33.0 pg [facility] Mean Corpuscular HGB Conc 31.1 31.0 - 35.0 g/dl [facility] Red Cell Distribution Width 13.2 11.0 - 16.0 % [facility] Platelet Count 240 160 - 400 X10*3/uL [facility] Mean Platelet Volume 11.7 9.4 - 12.3 fL [facility] Neutrophils Percent Auto 64.1 45 - 73 % [facility] Imm Gran Pct Auto 0.1 0.0 - 0.4 % [facility] Lymphocytes Percent Auto 27.3 20 - 40 % [facility] Monocytes Percent Auto 7.1 2 - 11 % [facility] Eosinophils Percent Auto 1.0 0 - 4 % [facility] Basophils Percent Auto 0.4 0 - 2 % [facility] NRBC Pct Auto 0.0 0.0 - 0.2 /100WBC [facility] Neutrophils Absolute Auto 4.3 2.0 - 8.3 x10*3/uL [facility] Imm Gran Abs Auto 0.01 0.00 - 0.03 X10*3/uL [facility] Lymphocytes Absolute Auto 1.9 1.2 - 4.9 X10*3/uL [facility] Monocytes Absolute Auto 0.5 0.1 - 1.2 X10*3/uL [facility] Eosinophils Absolute Auto 0.1 0.0 - 0.4 X10*3/uL [facility] Basophils Absolute Auto 0.0 0.0 - 0.2 X10*3/uL [facility] NRBC Abs Auto 0.000 0.0 - 0.012 X10*3/uL [facility] Blood Venous blood specimen / Unknown 03/21/2025 1:20 PM EST 03/21/2025 4:09 PM EST us James Marcano ANP LAB BLOOD ORDERABLES Final Resul t Performing Organization Address [facility] [[email or web address]] Co de Phone Number [facility] [address] [place] [phone] * HIV-1/2 Antigen and Antibodies, Fourth Generation, with Reflexes (03/21/2025 1:20 PM EST) HIV AB/AG Nonreactive Nonreactive [facility] Comment:HIV-1 p24 Ag and/or HIV-1/HIV-2 Ab not detected.A test result that is nonreactive does not exclude thepossibility of exposure to or infection with HIV-1 and/orHIV-2. Nonreactive results in this assay for individualswith prior exposure to HIV-1 and/or HIV-2 may be due toantigen and antibody levels that are below the limit ofdetection of this assay.The Flyfit HIV Ag/Ab Combo assay result andsupplemental assay results should be interpreted inconjunction with the patient's clinical presentation,history and other laboratory results. If the results areinconsistent with clinical evidence, additional testing issuggested to confirm the result. Blood Venous blood specimen / Unknown 03/21/2025 1:20 PM EST 03/21/2025 4:09 PM EST James aMrcano ANP LAB BLOOD ORDERABLES Final Resul t Performing Organization Address [facility] [[email or web address]] Co de Phone Number [facility] [address] [place] [phone] * Uric acid (03/21/2025 1:20 PM EST) Uric Acid 4.3 2.4 - 5.7 mg/dL [facility] Blood Venous blood specimen / Unknown 03/21/2025 1:20 PM EST 03/21/2025 4:09 PM EST James Maracno ANP LAB BLOOD ORDERABLES Final Resul t Performing Organization Address City/[facility] [[email or web address]] Co de Phone Number [facility] [address] [place] [phone] * (ABNORMAL) Lipid Panel, Standard (03/21/2025 1:20 PM EST) Triglycerides 150(H) <150 mg/dL [facility] Comment:Desirable Triglyceri de: less than 150 mg/dLBorderline High Triglyceride 150-199 mg/dLHigh Triglyceride: 200-499 mg/dLVery High Triglyceride: greater than or equal to 5OO mg/dL Cholesterol 241(H) <200 mg/dL [facility] Comment:Desirable Cholestero l: less than 200 mg/dLBorderline High Cholesterol: 200-239 mg/dLHigh Cholesterol: greater than 239 mg/dL LDL Cholesterol Calculated 158(H) <100 mg/dL [facility] Comment:Desirable LDL: less than 100 mg/dLNear Optimal/Above Optimal LDL: 110- 129 mg/dLBorderline High LDL: 130-159 mg/dLHigh LDL: 160-189 mg/dLVery High LDL: greater than or equal to 190 mg/dL HDL Cholesterol 53 >40 mg/dL [facility] Comment:Desirable HDL: great er than 40 mg/dL Note: This HDL assay may give artificially low results in patients with liver disease. Blood Venous blood specimen / Unknown 03/21/2025 1:20 PM EST 03/21/2025 4:09 PM EST [facility] LAB BLOOD ORDERABLES Final Resul t [facility] [address] [place] [phone] * BI Mammogram Screening Tomosynthesis Bilateral (10/01/2024 10:25 AM EDT) Anatomical Region Laterality Modality Breast Bilateral Mammography 10/01/2024 10:2 5 AM EDT Narrative 10/08/2024 3:45 PM EDT [facility] [address] [place] [address] Mammography Report Signed Patient: Maria Luisa Richardson MR#: [id number] : 1965 Acct:[id number] Age/Sex: 59 / F ADM Date: 10/01/24 Loc: HO.MAMMO Attending Dr: James Marcano NP Ordering Physician: JAMES MARCANO NP Results: 2Benidari mead Date of Service: 10/01/24 Follow Up: 1 Year From Orig inal Mammogram Procedure(s): MM tomosynthesis screening BI Accession Number(s): [id number] cc: JAMES MARCANO NP EXAMINATION: MM SCREENING [...] 10/08/24 1542 DD/ 1025 TD/TT: 10/01/24 1037 Paperhanger And Painter: Procedure Note Donotuseinterpreter, Image - 10/08/2024 [facility] [address] [place] [address] Mammography Report Signed Patient: Maria Luisa Richardson R#: [id number] : 1965Acct:[id number] Age/Sex: 59 / FADM Date: 10/01/24 Loc: HO.MAMMO Attending Dr: James Marcano CALL CENTER ASSISTANT Ordering Physician: JAMES MARCANO NPResults: 2Benign Chao mead Date of Service: 10/01/24Follow Up: 1 Year From Orig inal Mammogram Procedure(s): MM tomosynthesis screening BI Accession Number(s): [id number] cc: JAMES MARCANO NP EXAMINATION: MM SCREENING [...] 10/08/24 1542 DD/ 1025 TD/TT: 10/01/24 1037 Paperhanger And Painter: James Marcano ANP IMG BI PROCEDURES Edited Result - Final [...] INCORRECT, PLEASE CONTACT CLIENT SERVICES. PHONE NUMBER: Comment: This Pap test has been evaluated with computer assisted technology. [facility] Source Water Protection Specialist : SEE COMMENT [facility] Comment: RK, CT(ASCP) CT screening location: [place] [address] Infection Trichomonas vaginalis identified. [facility] Interpretation/R esult: Negative for intraepithelial lesion or malignancy. [facility] LMP: NONE [facility] Prev. BX: NONE [facility] Prev. PAP: NONE [facility] Review Source Water Protection Specialist : SEE COMMENT [facility] Comment: SL, CT(ASCP) CT screening location: [place] [address] SOURCE: None given [facility] Statement Of Adequacy: SEE COMMENT [facility] Comment: Satisfactory for evaluation. Endocervical/transformation zone component absent. Age and/or menstrual status not provided 07/13/2020 10:1 2 AM EST Historical Provider MD LAB PATHOLOGY ORDERABLES Final Result Performing Organization Address [facility] de Phone Number [facility] [address] * HEPATITIS C ANTIBODY RFLX (08/17/2019 11:45 AM EDT) HEPATITIS C ANTIBODY NONREACTIVE NONREACTIVE [facility] Comment: Antibodies to HCV not detected; does not exclude early acute HCV infection. 08/17/2019 11:4 5 AM EDT Historical Provider HISTORICAL/NON ORDERABLE LABS Final Result Performing Organization Address [facility] de Phone Number [facility] [address] from Last 3 Months or Most Recently Relevant to Health Maintenance Insurance [facility] C3 Care Teams Field Automobile Adjuster Relationship Specialty Start Date End Date James Marcano ANP [address] [place] [phone] PCP - General Family Medicine 01/04/21
--- OUTSIDE RECORDS SUMMARY | 2025-05-08 19:04 | XMS_ITS | Encounter Summary ---
Author Organization [employer] Address [address] [facility] [address] [place] [address] Care Team Providers Care Life Skills Coordinator Volunteer Name Role Phone Vivian Sims MIKA Primary Care Provider [phone] Encounter Details Date Type Department Care Team (Latest Contact Info) Description 05/08/2025 Travel Social History Tobacco Use Types Packs/Day [...] Description 05/30/2025 10:30 AM EST Office Visit [facility] OPTOMETRY [address] [place] [address] Bethany Dotson, OD [address] [place] [address] 07/14/2025 11:15 AM EST Telemedicine [facility] MEDICINE [address] [place] [address] Vivian Sims ANP [address] [place] [address] documented as of this encounter Visit Diagnoses Not on filedocumented in this encounter Additional Health Concerns Assessment Noted Time PHQ-9 Depression Total Score: 21 025 8:44 AM EST documented as of this encounter Care Teams Life Skills Coordinator Volunteer Relationship Specialty Start Date End Date Vivian Sims ANP [address] [place] [phone] PCP - General Family Medicine 01/04/21 documented as of this encounter
--- OUTSIDE RECORDS SUMMARY | 2025-05-08 19:04 | XMS_ITS | Clinical Summary ---
Author Organization [facility] Address [address] [place] [address] Phone Care Team Providers Care Front Desk Person Name Role Phone Vivian Sims NP Primary Care Provider [phone] Allergies Active Allergy Reactions Criticality Noted Date Comments Ceftriaxone Hives 04/20/2025 Fish Containing Products Hives 10/14/2016 Nalbuphine Unknown 02/06/2014 Needs to be given reversal agent Medications albuterol HFA (PROAIR HFA ; PROVENTIL HFA ; VENTOLIN HFA) 90 mcg/actuation inhaler Inhale 2 puffs by mouth. 0 Active cetirizine (ZyrTEC) 10 mg tablet Take 1 tablet (10 mg total) by mouth 2 (two) times a day. 4 Active famotidine (PEPCID) 20 mg tablet Take 1 tablet (20 mg total) by mouth 2 (two) times a day. 4 Active simvastatin (ZOCOR) 40 mg tablet Take 1 tablet (40 mg total) by mouth. 0 Active triamcinolone (NASACORT) 55 mcg nasal inhaler Administer 1 spray into affected nostril(s). 0 Active calcium carbonate-maría calciferol (OYSTER SHELL) 250 mg-3.125 mcg (125 unit) per tablet Take 1 tablet by mouth. Active cholecalciferol (VITAMIN D-3) 1,250 mcg (50,000 unit) capsule Take 1 capsule (50,000 Units total) by mouth 1 (one) time per week. Active EPINEPHrine (EPIPEN) 0.3 mg/0.3 mL injection Inject 0.3 mL (0.3 mg total) into the thigh if needed for anaphylaxis. Active nitrofurantoin, macrocrystal-mo nohydrate, (MACROBID) 100 mg capsule Take 1 capsule (100 mg total) by mouth 2 (two) times a day for 5 days. 10 capsule 5 04/25/20 25 acetaminophen (TYLENOL) 500 mg tablet Take 2 tablets (1,000 mg total) by mouth every 6 (six) hours if needed for mild pain for up to 10 days. 30 tablet 5 04/30/20 25 ibuprofen (ADVIL,MOTRIN) 600 mg tablet Take 1 tablet (600 mg total) by mouth every 6 (six) hours if needed for mild pain, headaches or moderate pain for up to 10 days. 30 tablet 5 04/30/20 25 Encounters Date Type Department Care Team Description 04/20/2025 11:08 AM EST - 04/20/2025 6:58 PM EST Emergency [facility] Emergency [address] [place] [address] Acute cystitis with hematuria (Primary Dx); Allergic reaction, initial encounter; Hyperesthesia Discharge Disposition: Home or Self Care 03/23/2025 12:58 PM EST - 03/23/2025 11:59 PM [facility] Hospital Encounter [facility] Bone Density [address] [place] [phone] Encounter for screening for osteoporosis; Menopausal state Discharge Disposition: Home or Self Care 03/21/2025 Telephone Gastroenterology - [address] [address] Kodi Gates MD from Last 3 Months Surgical History Surgery Date Site/Laterality Comments PARTIAL HYSTERECTOMY 1994 PROCEDURE: ND SUPRACERVICAL ABDL HYSTER W/WO RMVL TUBE OVARY; COMMENT: Has ovaries - had bleeding OTHER SURGICAL HISTORY PROCEDURE: ANALGESIA FOR LABOR/ BREAST BIOPSY Left PROCEDURE: BX BREAST; PERC NEEDLE CORE W/IMAG GUID; COMMENT: lt breast bx neg COLONOSCOPY 12/18/14 PROCEDURE: HISTORICAL COLONOSCOPY; COMMENT: tics; repeat in 10 yrs CARPAL TUNNEL RELEASE 04/2016 Right PROCEDURE: HISTORICAL CARPAL TUNNEL REL; COMMENT: w/ trigger finger release CHOLECYSTECTOMY PROCEDURE: HISTORICAL CHOLECYSTECTOMY Medical History Medical History Date Comments Asthma DX:Asthma Dyslipidemia DX:Dyslipidemia Pterygium of both eyes DX:Pteryg ium of both eyes Kidney stones DX:Kidney stones ; COMMENT: in [place] History of suicide attempt 2006 DX:Hi story of suicide attempt; COMMENT: x 7 History of cocaine use DX:Histor y of cocaine use; COMMENT: x 1 per behav health intake in 2006 Depression DX:Depression; 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 at 78 y.o. Other: Other Maternal Grandmother at -84 Parkinson's, HTN Diabetes Mother Multiple myelom a, CKD Other: ckd Mother Other: ovarian cancer Mother's side aunt, cervical cancer Other: drowned Paternal Grandfather head injury during boating accident Other: heart attack Paternal Grandmother Colon cancer Uncle 1 survived 70 y.o . 2013; maternal Prostate cancer Uncle 2 paternal unc le- in his 60s Breast cancer Neg Hx Relation Name Status Comments Aunt 1 Aunt 2 Father Alive Maternal Grandfather Maternal Grandmother Mother Alive multiple myelom a Mother's side Paternal Grandfather Paternal Grandmother Uncle 1 Uncle 2 Social History Tobacco Use Types Packs/Day Years Used Date Smoking Tobacco: Never Smokeless Tobacco: Never Alcohol Use Standard Drinks/Week Comments Yes 0 (1 standard drink = 0.6 oz pur e alcohol) Comments Unknown Sex and Gender Information Value Date Recorded Sex Assigned at Not on file Legal Sex Female 9:30 AM EST Gender Identity Not on file Sexual Orientation Not on file Last Filed Vital Signs Vital Sign Reading Time Taken Comments Blood Pressure 107/71 04/20/2025 6:28 PM EST Pulse 72 04/20/2025 6:28 PM EST Temperature 36.9 C (98.4 F) 04/20/2025 6:28 PM EST Respiratory Rate 16 04/20/2025 6:28 PM EST Oxygen Saturation 99% 04/20/2025 6:28 PM EST Inhaled Oxygen Concentration - - Weight 58.1 kg (128 lb) 04/20/2025 10:36 AM EST Height 160 cm (5' 3 ) 04/20/2025 10:36 AM EST Body Mass Index 22.67 04/20/2025 10:36 AM EST Plan of Treatment Upcoming Encounters Date Type Department Care Team (Late st Contact Info) Description 06/01/2025 12:00 PM EST Appointment [facility] Endoscopy [address] [place] [address] Scarlet Sandoval MD [address] [facility] [place] [address] Health Maintenance Due Date Last Done Comments RSV Immunization Adult Patients (1 - Risk 50-74 years 1-dose series) 2014 Zoster Vaccines (1 of 2) 2014 Breast Cancer Screening 04/24/2019 04/24/2017 Hepatitis C Screening 03/06/2024 Social Influencers of Health Screening 03/06/2024 Depression Screening 05/18/2024 Colorectal Cancer Screening: Colonoscopy 12/18/2024 12/18/2014 COVID-19 Vaccine ( - season) 2025 10/10/2020, 09/08/2020 Cholesterol Screening (Lipid Panel) 03/21/2030 03/21/2025 DTaP,Tdap,and Td Vaccines (3 - Td or Tdap) 09/27/2034 09/27/2024, 11/14/2013 Osteoporosis Screening (Bone Density Screening) 03/23/2035 03/23/2025 MMR Vaccines Aged Out 02/02/2020 No longer eligi ble based on patient's age to complete this topic Hepatitis B Vaccines Completed 05/13/2021, 04/03/2020, 02/02/2020 [...] patient's age to complete this topic Meningococcal ACWY Vaccine Aged Out N o longer eligible based on patient's age to complete this topic Meningococcal B Vaccine Aged Out No l onger eligible based on patient's age to complete this topic RSV Immunization Patients Under 20 months Aged Out No longer eligible based on patient's age to complete this topic Varicella Vaccines Aged Out No longer eligible based on patient's age to complete this topic Goals Goal Patient Goal Type Associated Problems Recent Progress Patient-Stated? Author Autogenerat ed Goal Care Plan Autogenerated Problem No Glynn Lin Procedures Procedure Name Priority Date/Time Associated Diagnosis Comments VARICELLA ZOSTER ANTIBODY, IGM STAT 04/20/2025 2:51 PM EST VARICELLA ZOSTER ANTIBODY IGG STAT 04/20/2025 2:51 PM EST VARICELLA ZOSTER PCR STAT 04/20/2025 2:[address] ABDOMEN PELVIS W CONTRAST STAT 04/20/2025 1:43 PM EST CBC WITH AUTO DIFFERENTIAL STAT 04/20/2025 12:53 PM EST LACTATE, WITH REFLEX STAT 04/20/2025 12:53 PM EST LIPASE STAT 04/20/2025 12:53 PM EST CBC AND DIFFERENTIAL STAT 04/20/2025 12:53 PM EST COMPREHENSIVE METABOLIC PANEL STAT 04/20/2025 12:53 PM EST POC , URINE DIAGNOSTIC STAT 04/20/2025 11:29 AM EST URINALYSIS WITH REFLEX MICROSCOPIC STAT 04/20/2025 11:22 AM EST URINALYSIS WITH REFLEX MICROSCOPIC STAT 04/20/2025 11:22 AM EST MENDEZ URINE CULTURE TUBE Routine 04/20/2025 11:21 AM EST EXTRA TUBES Routine 04/20/2025 11:21 AM EST BD BONE DENSITY DXA AXIAL SKELETON Routine 03/23/2025 1:52 PM EST Encounter for screening for osteoporosis Menopausal state SCR MAMMO BI INCL CAD Routine 04/24/2017 2:12 PM EST Encounter for screening mammogram for malignant neoplasm of breast from Last 3 Months or Most Recently Relevant to Health Maintenance Results * Varicella zoster molecular study (04/20/2025 2:51 PM EST) Specimen Source Blood - Plasma 04/24/2025 10:04 AM EST [facility] Varicella Zoster PCR Not detected Not detected 04/24/2025 10:04 AM EST [facility] Comment: This test utilizes a real-time polymerase chain reaction procedure to amplify and detect a conserved region of VZV open reading frame 62. The analytical sensitivity of this assay is 100 copies/mL. A Not detected result does not rule out infection. This test uses commercial reagents that have not been approved or cleared by the FDA. The FDA has determined that such clearance or approval is not necessary. The performance characteristics of this procedure were determined by [facility]. This test is performed pursuant to a license agreement with [employer] Test performed at [facility], [address] , [place] [address] Brandy Hubbard MD, PhD - Larry Operator Blood Venous structure / Unknown Venipuncture / Unknown 04/20/2025 2:51 PM EST 04/20/2025 3:04 PM EST [facility] BLOOD ORDERABLES Final Result [facility] [address] [place] [place] [address] * Varicella zoster antibody, IgM (04/20/2025 2:51 PM EST) Varicella zoster Antibody IgM 0.18 <=0.90 INDEX 04/25/2025 5:04 AM EST [facility] Comment: Negative: No antibody detected Test performed at [facility], [address] , [place] [address] Brandy Hubbard MD, PhD - Larry Operator Blood Venous blood specimen / Unknown Venipuncture / Unknown 04/20/2025 2:51 PM EST 04/20/2025 3:04 PM EST [facility] BLOOD ORDERABLES Final Result Performing Organization Address City/[facility] Co de Phone Number [facility] [address] [place] [address] * Varicella zoster antibody IgG (04/20/2025 2:51 PM EST) Pathologist [facility] Varicella IgG Positive Positive LAB CHEMISTRY METHOD 04/21/2025 10:24 AM EST [facility] Varicella Zoster IgG 3.99 >=1.00 S/CO LAB CHEMISTRY METHOD 04/21/2025 10:24 AM EST [facility] Blood Venous blood specimen / Unknown Venipuncture / Unknown 04/20/2025 2:51 PM EST 04/20/2025 3:04 PM EST Narrative [facility] - 04/21/2025 10:24 AM EST Interpretation >= 1.00 S/CO is considered to be consistent with Immunity us [facility] BLOOD ORDERABLES Final Result Performing Organization Address City/[facility]/ZIP Co de Phone Number [facility] [address] [place] [address], [place] [phone] * CT Abdomen Pelvis w Contrast (04/20/2025 1:43 PM EST) Anatomical Region Laterality Modality Body Computed Tomogra phy 04/20/2025 1:56 PM EST Impressions 04/20/2025 1:58 PM EST No acute intra-abdominal findings. -------- FINAL REPORT -------- Dictated By: Alix Rosales Dictated Date: 04/20/2025 13:56 ET Assigned Physician: Alix Rosales Reviewed and Electronically Signed By: Alix Rosales Signed Date: 04/20/2025 13:58 ET Workstation ID: [id number] Transcribed By: Self Edit Transcribed Date: 04/20/2025 13:56 ET Narrative 04/20/2025 1:58 PM EST PROCEDURE: CT ABDOMEN/PELVIS WITH CONTRAST INDICATION: Abdominal pain, acute, no prior medical history TECHNIQUE: CT of the abdomen and pelvis following the intravenous administration of 90cc Isovue 370. Multiplanar reformats. The examination was performed utilizing dose reduction techniques. Total DLP 522 COMPARISON: No priors available. FINDINGS: LOWER THORAX: Lung bases are clear. HEPATOBILIARY: No focal liver lesions. Cholecystectomy. SPLEEN: No focal lesion. PANCREAS: No focal mass or ductal dilatation. ADRENALS: No nodules. KIDNEYS/URETERS: No hydronephrosis, stones, or solid mass. PELVIC ORGANS/BLADDER: Hysterectomy. PERITONEUM / RETROPERITONEUM: No ascites or free air. No retroperitoneal lymphadenopathy. VESSELS: Tortuous aorta with aneurysm or dissection. GI TRACT: No bowel distention or wall thickening. Normal appendix. BONES AND SOFT TISSUES: Scattered degenerative changes seen throughout the bones anterolisthesis of L4 and L5. Soft tissues are unremarkable. Procedure Note Alix Rosales MD - 04/20/2025 PROCEDURE: CT ABDOMEN/PELVIS WITH CONTRAST INDICATION: Abdominal pain, acute, no prior medical history TECHNIQUE: CT of the abdomen and pelvis following the intravenousadministration of 90cc Isovue 370. Multiplanar reformats. The examinationwas performed utilizing dose reduction techniques. Total DLP 522 COMPARISON: No priors available. FINDINGS: LOWER THORAX: Lung bases are clear. HEPATOBILIARY: No focal liver lesions. Cholecystectomy. SPLEEN: No focal lesion. PANCREAS: No focal mass or ductal dilatation. ADRENALS: No nodules. KIDNEYS/URETERS: No hydronephrosis, stones, or solid mass. PELVIC ORGANS/BLADDER: Hysterectomy. PERITONEUM / RETROPERITONEUM: No ascites or free air. No retroperitoneallymphadenopathy. VESSELS: Tortuous aorta with aneurysm or dissection. GI TRACT: No bowel distention or wall thickening. Normal appendix. BONES AND SOFT TISSUES: Scattered degenerative changes seen throughout thebones anterolisthesis of L4 and L5. Soft tissues are unremarkable. IMPRESSION: No acute intra-abdominal findings. -------- FINAL REPORT -------- Dictated By: Alix Rosales Dictated Date: 04/20/2025 13:56 ET Assigned Physician: Alix Rosales Reviewed and Electronically Signed By: Alix Rosales Signed Date: 04/20/2025 13:58 ET Workstation ID: [id number] Transcribed By: Self Edit Transcribed Date: 04/20/2025 13:56 ET us [facility] IMG CT PROCEDURES Final Res ult * Lactate, with Reflex (04/20/2025 12:53 PM EST) Pathologist [facility] LACTIC ACID 1.4 0.4 - 2.0 mmol/L 04/20/2025 1:23 PM EST [facility] Blood Venous blood specimen / Unknown Venipuncture / Unknown 04/20/2025 12:53 PM EST 04/20/2025 12:57 PM EST us [facility] BLOOD ORDERABLES Final Result [facility] [address] [place] [address], [place] [phone] * CBC auto differential (04/20/2025 12:53 PM EST) WBC 8.9 4.8 - 10.8 K/mcL LAB HEMETOLOGY METHOD 04/20/2025 1:00 PM EST [facility] RBC 3.90 3.80 - 4.80 M/mcL LAB HEMETOLOGY METHOD 04/20/2025 1:00 PM EST [facility] Hemoglobin 11.5 11.5 - 16.0 g/dL LAB HEMETOLOGY METHOD 04/20/2025 1:[address] [facility] Hematocrit 35.9 35.0 - 47.0 % LAB HEMETOLOGY METHOD 04/20/2025 1:[address] [facility] MCV 92.8 79.0 - 98.0 FL LAB HEMETOLOGY METHOD 04/20/2025 1:[address] [facility] MCH 29.7 27.0 - 32.0 pcg LAB HEMETOLOGY METHOD 04/20/2025 1:[address] [facility] MCHC 32.0 32.0 - 37.0 g/dL LAB HEMETOLOGY METHOD 04/20/2025 1:[address] [facility] RDW 13.2 11.0 - 15.0 % LAB HEMETOLOGY METHOD 04/20/2025 1:[address] [facility] Platelets 222 130 - 400 K/mcL LAB HEMETOLOGY METHOD 04/20/2025 1:[address] [facility] MPV 10.3 7.0 - 11.0 FL LAB HEMETOLOGY METHOD 04/20/2025 1:[address] [facility] NRBC 0.0 <1.0 % LAB HEMETOLOGY METHOD 04/20/2025 1:[address] [facility] NRBC Absolute 0.00 <0.10 K/mcL LAB HEMETOLOGY METHOD 04/20/2025 1:[address] [facility] Neutrophils Relative 71.2 % LAB HEMETOLOGY METHOD 04/20/2025 1:[address] [facility] Lymphocytes Relative 21.5 % LAB HEMETOLOGY METHOD 04/20/2025 1:[address] [facility] Monocytes Relative 6.1 % LAB HEMETOLOGY METHOD 04/20/2025 1:[address] [facility] Eosinophils Relative 0.7 % LAB HEMETOLOGY METHOD 04/20/2025 1:00 PM EST [facility] Basophils Relative 0.3 % LAB HEMETOLOGY METHOD 04/20/2025 1:[address] [facility] Immature Granulocytes Relative 0.2 % LAB HEMETOLOGY METHOD 04/20/2025 1:00 PM EST [facility] Neutrophils Absolute 6.31 1.50 - 7.00 K/mcL LAB HEMETOLOGY METHOD 04/20/2025 1:00 PM EST [facility] Lymphocytes Absolute 1.91 1.00 - 5.00 K/mcL LAB HEMETOLOGY METHOD 04/20/2025 1:[address] [facility] Monocytes Absolute 0.54 0.20 - 1.00 K/mcL LAB HEMETOLOGY METHOD 04/20/2025 1:[address] [facility] Eosinophils Absolute 0.06 0.00 - 0.50 K/mcL LAB HEMETOLOGY METHOD 04/20/2025 1:00 PM EST [facility] Basophils Absolute 0.03 0.00 - 0.20 K/mcL LAB HEMETOLOGY METHOD 04/20/2025 1:00 PM EST [facility] Immature Granulocytes Absolute 0.02 0.00 - 0.03 K/mcL LAB HEMETOLOGY METHOD 04/20/2025 1:[address] [facility] Blood Venous blood specimen / Unknown Venipuncture / Unknown 04/20/2025 12:53 PM EST 04/20/2025 12:57 PM EST us [facility] BLOOD ORDERABLES Final Result [facility]) [facility] [address] [place] [address], * Lipase (04/20/2025 12:53 PM EST) Lipase 26 12 - 53 unit/L 04/20/2025 1:[address] [facility] Blood Venous blood specimen / Unknown Venipuncture / Unknown 04/20/2025 12:53 PM EST 04/20/2025 12:57 PM EST [facility] BLOOD ORDERABLES Final Result [facility] [address] [place] [address], * Comprehensive Metabolic Panel (CMP) (04/20/2025 12:53 PM EST) Sodium 141 133 - 145 mmol/L 04/20/2025 1:[address] [facility] Potassium 4.1 3.5 - 5.5 mmol/L 04/20/2025 1:[address] [facility] Chloride 105 96 - 110 mmol/L 04/20/2025 1:[address] [facility] CO2 30 21 - 32 mmol/L 04/20/2025 1:[address] [facility] Anion Gap 6 3 - 11 04/20/2025 1:[address] [facility] Glucose 85 70 - 100 mg/dL 04/20/2025 1:[address] [facility] BUN 15 5 - 25 mg/dL 04/20/2025 1:[address] [facility] Creatinine 0.76 0.50 - 1.10 mg/dL 04/20/2025 1:[address] [facility] eGFR 90 >=60 mL/min/1. 73m2 04/20/2025 1:[address] [facility] Comment:Calculation based on the Chronic Kidney Disease Epidemiology Collaboration (CKD-EPI) equation refit without adjustment for race. BUN/Creatinine Ratio 19.7 04/20/2025 1:[address] [facility] Calcium 8.7 8.5 - 10.5 mg/dL 04/20/2025 1:[address] [facility] AST (SGOT) 18 10 - 42 unit/L 04/20/2025 1:[address] [facility] ALT (SGPT) 14 10 - 60 unit/L 04/20/2025 1:[address] [facility] Alkaline Phosphatase 75 42 - 121 unit/L 04/20/2025 1:[address] [facility] Total Protein 6.5 6.0 - 8.0 g/dL 04/20/2025 1:[address] [facility] Albumin 4.0 3.2 - 5.0 g/dL 04/20/2025 1:[address] [facility] Total Bilirubin 0.4 0.0 - 1.4 mg/dL 04/20/2025 1:[address] [facility] Blood Venous blood specimen / Unknown Venipuncture / Unknown 04/20/2025 12:53 PM EST 04/20/2025 12:57 PM EST us [facility] BLOOD ORDERABLES Final Result [facility] [address] [place] [address], [place] [phone] * POC , urine manually resulted (04/20/2025 11:29 AM EST) Pathologist [facility] HCG, Ur POC Negative Negative POC hCG Int QC Pass? Yes Yes Urine Urine specimen obtained by clean catch procedure / Unknown 04/20/2025 11:29 AM EST us [facility] POINT OF CARE TEST ENTER/ED IT ORDERABLES Final Result * (ABNORMAL) Urinalysis with reflex microscopic (04/20/2025 11:22 AM EST) Specific Murray Urine 1.014 1.003 - 1.030 LAB URINALYSIS - AUTOMATED METHOD 04/20/2025 12:[address] [facility] pH, Urine 7.0 5.0 - 8.0 pH LAB URINALYSIS - AUTOMATED METHOD 04/20/2025 12:[address] [facility] Leukocytes, Urine Large(A) Negative LAB URINALYSIS - AUTOMATED METHOD 04/20/2025 12:[address] [facility] Nitrite, Urine Negative Negative LAB URINALYSIS - AUTOMATED METHOD 04/20/2025 12:[address] [facility] Protein, Urine 30(A) <=Trace mg/dL LAB URINALYSIS - AUTOMATED METHOD 04/20/2025 12:[address] [facility] Glucose, Urine Negative Negative mg/dL LAB URINALYSIS - AUTOMATED METHOD 04/20/2025 12:[address] [facility] Ketones, Urine Negative Negative mg/dL LAB URINALYSIS - AUTOMATED METHOD 04/20/2025 12:[address] [facility] Urobilinogen , Urine 0.2 0.2 - 1.0 mg/dL LAB URINALYSIS - AUTOMATED METHOD 04/20/2025 12:[address] [facility] Bilirubin, Urine Negative Negative LAB URINALYSIS - AUTOMATED METHOD 04/20/2025 12:[address] [facility] Blood, Urine Large(A) Negative LAB URINALYSIS - AUTOMATED METHOD 04/20/2025 12:[address] [facility] RBC, Urine >100(H) 0 - 4 /HPF 04/20/2025 12:[address] [facility] WBC, Urine >100(H) 0 - 4 /HPF 04/20/2025 12:[address] [facility] Squamous Epithelial, Urine 20 0 - 60 /LPF 04/20/2025 12:[address] [facility] Bacteria, Urine Moderate(A) Negative /HPF 04/20/2025 12:03 PM EST [facility] Urine Urine specimen obtained by clean catch procedure / Unknown Non-blood Collection / Unknown 04/20/2025 11:22 AM EST 04/20/2025 11:29 AM EST [facility] URINE ORDERABLES Final Result Performing Organization Address [facility]/ZIP Co de Phone Number [facility] [address] [place] [address], [place] [phone] * Mendez urine culture tube (04/20/2025 11:21 AM EST) Extra Tube Hold for add-ons. 04/20/2025 1:02 PM EST [facility] Comment:Auto resulted. Urine Urine specimen obtained by clean catch procedure / Unknown 04/20/2025 11:21 AM EST 04/20/2025 11:30 AM EST [facility] URINE ORDERABLES Final Result Performing Organization Address [facility] Co de Phone Number [facility] [address] [place] [address], [place] [phone] * BD Bone Density DXA Axial Skeleton (03/23/2025 1:52 PM EST) Anatomical Region Laterality Modality Wrist, Hip, L-spine Bone Densito metry 03/27/2025 8:36 AM EST Impressions 03/27/2025 8:37 AM EST 1. Osteopenia. 2. FRAX analysis yields a 10-year probability of major osteoporotic fracture of 5.3% and a 10-year probability of hip fracture of 0.7%. Code 17335 -------- FINAL REPORT -------- Dictated By: Tonio Mims Dictated Date: 03/27/2025 08:36 ET Assigned Physician: Tonio Mims Reviewed and Electronically Signed By: Tonio Mims Signed Date: 03/27/2025 08:37 ET Workstation ID: [id number] Transcribed By: Self Edit Transcribed Date: 03/27/2025 08:36 ET Narrative 03/27/2025 8:37 AM EST HISTORY: The patient is a 59-year-old postmenopausal female with clinical concern for metabolic bone disease. FINDINGS: Dual energy x-ray absorptiometry of the lumbar spine and femurs is performed. The mean bone mineral density at L1-L4 is 1.020 gm/cm2 which is 85% of that of young normals and 98% of that of age matched controls. This yields a T-score of -1.5 and a Z-score of -0.2 which is diagnostic of osteopenia. The mean bone mineral density of the femurs bilaterally is 0.878 gm/cm2 which is 87% of that of young normals and 100% of that of age matched controls. This yields a T-score of -1.0 and a Z-score of 0.0 and there is therefore no evidence of osteoporosis or osteopenia here. However, the T-score of the right femoral neck is -1.9 and that of the left femoral neck is -1.4 which is diagnostic of osteopenia. Procedure Note Tonio Mims MD - 03/27/2025 HISTORY: The patient is a 59-year-old postmenopausal female with clinicalconcern for metabolic bone disease. FINDINGS: Dual energy x-ray absorptiometry of the lumbar spine and femursis performed. The mean bone mineral density at L1-L4 is 1.020 gm/cm2 whichis 85% of that of young normals and 98% of that of age matched controls.This yields a T-score of -1.5 and a Z-score of -0.2 which is diagnostic ofosteopenia. The mean bone mineral density of the femurs bilaterally is 0.878 gm/eb1bqhpy is 87% of that of young normals and 100% of that of age matchedcontrols. This yields a T-score of -1.0 and a Z-score of 0.0 and there istherefore no evidence of osteoporosis or osteopenia here. However, theT-score of the right femoral neck is -1.9 and that of the left femoralneck is -1.4 which is diagnostic of osteopenia. IMPRESSION: 1. Osteopenia. 2. FRAX analysis yields a 10-year probability of major osteoporoticfracture of 5.3% and a 10-year probability of hip fracture of 0.7%. Code 90799 -------- FINAL REPORT -------- Dictated By: Tonio Mims Dictated Date: 03/27/2025 08:36 ET Assigned Physician: Tonio Mims Reviewed and Electronically Signed By: Tonio Mims Signed Date: 03/27/2025 08:37 ET Workstation ID: [id number] Transcribed By: Self Edit Transcribed Date: 03/27/2025 08:36 ET us Vivian Sims [employer] IMG DXA PROCEDURES Final Result * SCR MAMMO BI INCL CAD (04/24/2017 2:12 PM EST) Anatomical Region Laterality Modality Radiographic Nona ging 04/01/2017 9:02 AM EST Narrative 04/24/2017 3:25 PM EST This is a summary report. The complete report is available in the patient's medical record. If you cannot access the medical record, please contact the sending organization for a detailed fax or copy. Full field digital screening mammography, reviewed with CAD and compared to previous. The breasts are composed of fatty and fibroglandular tissue. No suspicious mass, architectural distortion or suspicious calcifications are identified. IMPRESSION: : No mammographic evidence of malignancy. BIRADS 1-Negative; N. 5 year breast cancer risk assessment 0.6 % Lifetime breast cancer risk assessment 5.2 % Breast cancer risk category Low (<15%) Procedure Note Ellis Hines MD - 06/19/2023 This is a summary report. The complete report is available in thepatient's medical record. If you cannot access the medical record, pleasecontact the sending organization for a detailed fax or copy. Full field digital screening mammography, reviewed with CAD and comparedto previous. The breasts are composed of fatty and fibroglandular tissue.No suspicious mass, architectural distortion or suspicious calcificationsare identified. IMPRESSION: : No mammographic evidence of malignancy. BIRADS 1-Negative; N. 5 year breast cancer risk assessment 0.6 % Lifetime breast cancer risk assessment 5.2 % Breast cancer risk category Low (<15%) Kavita Hunter DO IMG XR PROCEDURES Final Result from Last 3 Months or Most Recently Relevant to Health Maintenance Additional Health Concerns Active Problems Noted Date Diagnosed Date Autogenerated Problem 04/07/2025 Infection Onset Date Last Indicated Varicella Zoster Rule-Out 04/20/20252024 Insurance [place] Care Teams Front Desk Person Relationship Specialty Start Date End Date Vivian Sims NP [address] [place] [id number] PCP - General 09/29/24
== END 2025-05-08 18:27 | disposition home or self-care (01) ==
LOC: HO.LNP 18:26
PROVIDERS: Visit Provider Nurse Practitioner Primary Care
DX: R30.0 Dysuria (principal)
CPT/HCPCS: 87086